=== PATIENT | female | born 1965 | race African-American/Black ===

== ENCOUNTER 2017-03-22 13:18 | Inpatient (IN) | payer OTHER ==
[2017-03-22 17:26] VITALS: BMI 24.9
--- NOTE | 2017-03-22 18:31 | HP ---
CIWA Score - CIWA Score Nausea/Vomitin Muscle Tremors: 4-Moderate,w/Arms Extend Anxiety: 4-Mod. Anxious/Guarded Agitation: 4-Moderately Restless Paroxysmal Sweats: 1-Minimal Palms Moist Orientation: 0-Oriented Tacttile Disturbances: 0-None Auditory Disturbances: 0-None Visual Disturbances: 0-None Headache: 1-Very Mild CIWA-Ar Total Score: 16 Admission ROS BHS - HPI Chief Complaint: WITHDRAWAL SX Allergies/Adverse Reactions: Allergies Allergy/AdvReac Type Severity Reaction Status Date / Time No Known Allergies Allergy Verified 03/22/17 17:43 History of Present Illness: 51 YEARS OLD FEMALE WITH LONG HISTORY OF ALCOHOL COCAINE NICOTINE DEPENDENCE HAS BORDERLINE DIABETES = NO TREATMENT, HYPERLIPIDEMIA = NONE COMPLIANCE WITH MEDICATION, HGB AIC PENDING AND DEPRESSION IS ADMITTED TO DETOX Exam Limitations: No Limitations - Ebola screening Have you traveled outside of the country in the last 21 days: No Have you had contact with anyone from an Ebola affected area: No Have you been sick,other than usual withdrawal symptoms: No Do you have a fever: No - Review of Systems Constitutional: Changes in sleep, Weight Stable EENT: reports: Dental Problems (MULTIPLE TEETH DECAY) Respiratory: reports: Productive cough (YELLOW) Cardiac: reports: No Symptoms Reported GI: reports: Nausea, Poor Fluid Intake, Vomiting, Indigestion, Abdominal cramping : reports: No Symptoms Reported Musculoskeletal: reports: Joint Pain (LEFT KNEE), Neck Pain Integumentary: reports: Rash (BETWEEN TOES) Neuro: reports: Tremors Endocrine: reports: No Symptoms Reported Hematology: reports: No Symptoms Reported Psychiatric: reports: Judgement Intact, Orientated x3, Depressed Other Systems: Reviewed and Negative Patient History - Patient Medical History Hx Anemia: No Hx Asthma: No Hx Chronic Obstructive Pulmonary Disease (COPD): No Hx Cancer: No Hx Cardiac Disorders: No Hx Congestive Heart Failure: No Hx Hypertension: No Hx Hypercholesterolemia: Yes (NO TREATMENT) Hx Pacemaker: No HX Cerebrovascular Accident: No Hx Seizures: No Hx Dementia: No Hx Diabetes: No Hx Gastrointestinal Disorders: Yes Hx Liver Disease: No Hx Genitourinary Disorders: No Hx Sexually Transmitted Disorders: Yes (Tx for syphillis.) Hx Renal Disease (ESRD): No Hx Thyroid Disease: No Hx Human Immunodeficiency Virus (HIV): No Hx Hepatitis C: No Hx Depression: Yes Hx Suicide Attempt: No Hx Bipolar Disorder: No Hx Schizophrenia: No - Patient Surgical History Past Surgical History: Yes Hx Neurologic Surgery: No Hx Cataract Extraction: No Hx Cardiac Surgery: No Hx Lung Surgery: No Hx Breast Surgery: No Hx Breast Biopsy: No Hx Abdominal Surgery: No Hx Appendectomy: Yes (5 YEARS OLD) Hx Cholecystectomy: Yes (2014) Hx Genitourinary Surgery: No Hx Section: No Hx Orthopedic Surgery: Yes (2014) Hx Hysterectomy: No Anesthesia Reaction: No - PPD History Previous Implant?: Yes Documented Results: Negative w/o proof Implanted On Prior [facility] Admission?: No PPD to be Administered?: Yes - Reproductive History Patient is a Female of Child Bearing Age (11 -55 yrs old): Yes Last Menstrual Period: 03/22/15 Patient : No - Smoking Cessation Smoking history: Current every day smoker Have you smoked in the past 12 months: Yes Aproximately how many cigarettes per day: 5 Cigars Per Day: 0 Hx Chewing Tobacco Use: No Initiated information on smoking cessation: Yes 'Breaking Loose' booklet given: 03/22/17 - Substance & Tx. History Hx Alcohol Use: Yes Hx Substance Use: Yes Substance Use Type: Alcohol, Cocaine Hx Substance Use Treatment: Yes (06/2016 [facility]) - Substances Abused Alcohol Route: Oral Frequency: Daily Amount used: 8-9 beers X 40OZ Age of first use: 10 Date of Last Use: 03/22/17 Cocaine Route: Smoking Frequency: Daily Amount used: $20 Age of first use: 30 Date of Last Use: 03/21/17 Family Disease History - Family Disease History Family Disease History: Diabetes: Mother (), Brother, Sister () , Heart Disease: Mother, Other: Father (/ALCOHOL), Mother, Sister Admission Physical Exam BHS - Vital Signs Vital Signs: Vital Signs - 24 hr 03/22/17 17:24 Temperature 98.0 F Pulse Rate 81 Respiratory 18 Rate Blood Pressure 144/86 - Physical General Appearance: Yes: Appropriately Dressed, Moderate Distress, Tremorous, Irritable, Sweating, Anxious HEENTM: Yes: Hearing grossly Normal, Normal ENT Inspection, Normocephalic, Normal Voice Respiratory: Yes: Chest Non-Tender, Lungs Clear, Normal Breath Sounds, No Respiratory Distress, No Accessory Muscle Use Neck: Yes: Supple, Trachea in good position Breast: Yes: Breasts Symetrical Cardiology: Yes: Regular Rhythm, Regular Rate, S1, S2 Abdominal: Yes: Non Tender, Soft, Surgical Scar Genitourinary: Yes: Itiching Back: Yes: Normal Inspection Musculoskeletal: Yes: full range of Motion, Gait Steady, Muscle Pain (NECK) Extremities: Yes: Normal Inspection, Normal Range of Motion, Non-Tender, Tremors , Other (ECZEMA) Neurological: Yes: Fully Oriented, Alert, Motor Strength 5/5, Normal Response, Depressed Affect Integumentary: Yes: Warm, Rash (TOES HANDS NECK ARMS ECZEMA) Lymphatic: Yes: Within Normal Limits - Diagnostic (1) Alcohol dependence with uncomplicated withdrawal Current Visit: Yes Status: Acute (2) GERD (gastroesophageal reflux disease) Current Visit: Yes Status: Chronic Qualifiers: Esophagitis presence: without esophagitis Qualified Code(s): K21.9 - Gastro-esophageal reflux disease without esophagitis; K21.9 - Gastro- esophageal reflux disease without esophagitis; K21.9 - Gastro-esophageal reflux disease without esophagitis (3) Nicotine dependence Current Visit: Yes Status: Acute Qualifiers: Nicotine product type: cigarettes Substance use status: in withdrawal Qualified Code(s): F17.213 - Nicotine dependence, cigarettes, with withdrawal; F17.213 - Nicotine dependence, cigarettes, with withdrawal (4) Eczema Current Visit: Yes Status: Acute Qualifiers: Eczema type: flexural Qualified Code(s): L20.82 - Flexural eczema; L20.82 - Flexural eczema (5) Depression (emotion) Current Visit: Yes Status: Suspected Qualifiers: Depression Type: dysthymia Qualified Code(s): F34.1 - Dysthymic disorder; F34.1 - Dysthymic disorder; F34.1 - Dysthymic disorder Cleared for Admission [facility] - Detox or Rehab [facility] Level of Care: Medically Managed Detox Regimen/Protocol: Librium [facility] Breath Alcohol Content Breath Alcohol Content: 0 Urine Pregancy Test - Result Urine Test Results: Negative- NO Line Present Urine Drug Screen - Results Drug Screen Negative: No Urine Drug Screen Results: RENAE-Cocaine
[2017-03-22] MEDS ORDERED: MENTHOL/PHENOL 1 EACH UD MM PRN (18:44)
[2017-03-22] MEDS ORDERED: LOPERAMIDE HCL 2 MG CAPSULE PO PRN (18:44)
[2017-03-22] MEDS ORDERED: P-EPHED 60MG/TRIPROLIDI 2.5MG TABLET PO PRN (18:44)
[2017-03-22] MEDS ORDERED: MAGNESIUM CITRATE 300 ML BOTTLE PO PRN (18:44)
[2017-03-22] MEDS ORDERED: MAGNESIUM HYDROX 2400MG/30ML ORAL SUSPENSION 30 ML CUP PO PRN (18:44)
[2017-03-22] MEDS ORDERED: MAG HYDROX/AL HYDROX/SIMETH 30 ML UNIT-DOSE CUP PO PRN (18:44)
[2017-03-22] MEDS ORDERED: ONDANSETRON *ODT* 4 MG TABLET SL ONE (18:45)
[2017-03-22] MEDS: chlordiazePOXIDE HCL 25 MG CAPSULE PO PRN (20:14)
[2017-03-22] MEDS: MINERAL OIL/PETROLAT/WATER TOPICAL CREAM 113 GM JAR TP SCH (22:27)
[2017-03-22] MEDS: chlordiazePOXIDE HCL 25 MG CAPSULE PO SCH (22:28)
[2017-03-22] MEDS: CLOTRIMAZOLE 1% CREAM 15 GM TUBE TP SCH (22:28)
[2017-03-22] MEDS: metroNIDAZOLE 0.75% VAGINAL GEL 70 GM TUBE VG SCH (22:28)
[2017-03-22] MEDS: GABAPENTIN 400 MG CAPSULE (FP) PO SCH (22:28)
[2017-03-22] MEDS: FLUOCINONIDE 0.05% CREAM (60 GM TUBE) TP SCH (22:28)
[2017-03-22] MEDS: RANITIDINE HCL 150 MG TABLET (FP) PO SCH (22:29)
[2017-03-22] MEDS: THIAMINE HCL 100 MG TABLET (FP) PO SCH (22:29)
[2017-03-22 23:31] LABS: URINE APPEARANCE CLEAR; URINE BILIRUBIN NEGATIVE (NEGATIVE); URINE BLOOD NEGATIVE (NEGATIVE); URINE COLOR STRAW; URINE GLUCOSE (UA) NEGATIVE (NEGATIVE); URINE KETONE NEGATIVE (NEGATIVE); URINE NITRITE NEGATIVE (NEGATIVE); URINE PROTEIN NEGATIVE (NEGATIVE); URINE UROBILINOGEN NEGATIVE mg/dL (0.2-1.0)
[2017-03-23] MEDS: guaiFENesin/D-METHORPHAN HB 10 ML UNIT-DOSE CUPS PO PRN ×2 (00:12→05:44)
[2017-03-23] MEDS: chlordiazePOXIDE HCL 25 MG CAPSULE PO SCH ×4 (05:45→22:24)
[2017-03-23] MEDS: CLOTRIMAZOLE 1% CREAM 15 GM TUBE TP SCH ×2 (10:28→22:26)
[2017-03-23] MEDS: PRENATAL VITAMINS W/ FOLIC ACID TABLET (FP) PO SCH (10:29)
[2017-03-23] MEDS: GABAPENTIN 400 MG CAPSULE (FP) PO SCH ×2 (10:29→22:24)
[2017-03-23] MEDS: RANITIDINE HCL 150 MG TABLET (FP) PO SCH ×2 (10:29→22:23)
[2017-03-23] MEDS: FLUOCINONIDE 0.05% CREAM (60 GM TUBE) TP SCH ×4 (10:29→22:25)
[2017-03-23] MEDS: NICOTINE 14 MG/24 HOURS TOPICAL PATCH TD SCH (10:29)
[2017-03-23] MEDS: NICOTINE POLACRILEX 2 MG GUM BUC PRN ×3 (10:35→22:30)
[2017-03-23 10:59] LABS: MCH 30.6 pg (25.7-33.7); MCHC 33.5 g/dl (32.0-36.0); MEAN CELL VOLUME 91.3 fl (80-96); PLATELET COUNT 388 K/MM3 (134-434); RDW 13.4 % (11.6-15.6); WHITE BLOOD COUNT 6.9 K/mm3 (4.0-10.0)
[2017-03-23 11:13] LABS: ALBUMIN 3.3 g/dl (3.4-5.0); ANION GAP 5 (8-16); CO2 30 mmol/L (21-32); GLUCOSE,RANDOM 106 mg/dL (74-106)
[2017-03-23 11:59] LABS: URINE LEUK ESTERASE Negative (NEGATIVE)
[2017-03-23] MEDS ORDERED: FLU VACCINE QUAD 60 MCG/0.5 ML (MDV 17-18) IM ONE (12:00)
--- NOTE | 2017-03-23 12:53 | EKG ---
Test Reason : Blood Pressure : / mmHG Vent. Rate : 073 BPM Atrial Rate : 073 BPM P-R Int : 150 ms QRS Dur : 082 ms QT Int : 366 ms P-R-T Axes : 064 058 -46 degrees QTc Int : 403 ms NORMAL SINUS RHYTHM T WAVE ABNORMALITY, CONSIDER INFEROLATERAL ISCHEMIA ABNORMAL ECG NO PREVIOUS ECGS AVAILABLE Confirmed by CARLEE CARLISLE MD ([id number]) on 03/23/2017 12:52:37 PM Referred By: Becca Hendricks Confirmed By:CARLEE CARLISLE MD
[2017-03-23 13:02] LABS: ALK PHOS 101 U/L (45-117); BILIRUBIN,TOTAL 0.4 mg/dL (0.2-1.0); CREATININE 1.1 mg/dL (0.55-1.02); SGOT/AST 14 U/L (15-37); SGPT/ALT 26 U/L (12-78)
[2017-03-23 13:17] LABS: CALCIUM 9.1 mg/dL (8.5-10.1)
--- NOTE | 2017-03-23 15:50 | PN ---
S CIWA - CIWA Score Nausea/Vomitin Muscle Tremors: 3 Anxiety: 3 Agitation: 3 Paroxysmal Sweats: 1-Minimal Palms Moist Orientation: 0-Oriented Tacttile Disturbances: 1-Very Mild Itch/Numbness Auditory Disturbances: 1-Very Mild Visual Disturbances: 1-Very Mild Sensitivity Headache: 2-Mild CIWA-Ar Total Score: 18 BHS Progress Note (SOAP) Subjective: alert,irritable,anxious,interrupted sleep,tremor Objective: 03/23/17 15:47 Vital Signs Temperature 99.9 F H 03/23/17 13:51 Pulse Rate 98 H 03/23/17 13:51 Respiratory Rate 18 03/23/17 13:51 Blood Pressure 96/63 03/23/17 13:51 O2 Sat by Pulse Oximetry (%) ekg nsr,inverted t in 2,3,avf,v4 to v6 Laboratory Last Values WBC 6.9 K/mm3 (4.0-10.0) 03/23/17 08:00 RBC 4.30 M/mm3 (3.60-5.2) 03/23/17 08:00 Hgb 13.2 GM/dL (10.7-15.3) 03/23/17 08:00 Hct 39.3 % (32.4-45.2) 03/23/17 08:00 MCV 91.3 fl (80-96) 03/23/17 08:00 MCH 30.6 pg (25.7-33.7) 03/23/17 08:00 MCHC 33.5 g/dl (32.0-36.0) 03/23/17 08:00 RDW 13.4 % (11.6-15.6) 03/23/17 08:00 Plt Count 388 K/MM3 (134-434) 03/23/17 08:00 MPV 8.0 fl (7.5-11.1) 03/23/17 08:00 Sodium 144 mmol/L (136-145) 03/23/17 08:30 Potassium 4.3 mmol/L (3.5-5.1) 03/23/17 08:30 Chloride 109 mmol/L (98-107) H 03/23/17 08:30 Carbon Dioxide 30 mmol/L (21-32) 03/23/17 08:30 Anion Gap 5 (8-16) L 03/23/17 08:30 BUN 21 mg/dL (7-18) H 03/23/17 08:30 Creatinine 1.1 mg/dL (0.55-1.02) H 03/23/17 08:30 Creat Clearance w eGFR 52.58 (>60) 03/23/17 08:30 Random Glucose 106 mg/dL (74-106) 03/23/17 08:30 Hemoglobin A1c % 6.0 % (4.8-6.0) 03/23/17 08:00 Calcium 9.1 mg/dL (8.5-10.1) 03/23/17 08:30 Total Bilirubin 0.4 mg/dL (0.2-1.0) 03/23/17 08:30 AST 14 U/L (15-37) L 03/23/17 08:30 ALT 26 U/L (12-78) 03/23/17 08:30 Alkaline Phosphatase 101 U/L (45-117) 03/23/17 08:30 Total Protein 7.0 g/dl (6.4-8.2) 03/23/17 08:30 Albumin 3.3 g/dl (3.4-5.0) L 03/23/17 08:30 Urine Color Straw 03/22/17 22:17 Urine Appearance Clear 03/22/17 22:17 Urine pH 5.0 (5.0-8.0) 03/22/17 22:17 Ur Specific [place] <= 1.005 (1.005-1.025) 03/22/17 22:17 Urine Protein Negative (NEGATIVE) 03/22/17 22:17 Urine Glucose (UA) Negative (NEGATIVE) 03/22/17 22:17 Urine Ketones Negative (NEGATIVE) 03/22/17 22:17 Urine Blood Negative (NEGATIVE) 03/22/17 22:17 Urine Nitrite Negative (NEGATIVE) 03/22/17 22: Urine Bilirubin Negative (NEGATIVE) 03/22/17 22:17 Urine Urobilinogen Negative mg/dL (0.2-1.0) 03/22/17 22:17 Ur Leukocyte Esterase Negative (NEGATIVE) 03/22/17 22:17 RPR Titer Nonreactive (NONREACTIVE) 03/23/17 08:00 03/23/17 15:50 Assessment: 03/23/17 15:49 03/23/17 15:50 withdrawal symptom Plan: continue detox
--- NOTE | 2017-03-23 17:10 | CONSULT ---
[facility] Psychiatric Consult - Data Date of interview: 03/23/17 Admission source: [facility] Identifying data: First admission to [facility] for this 51 y/o AA female seeking detox treatment on for alcohol and cocaine dependence.Patient is ,mother of four,homeless,unemployed and supported on foood stamps. Substance Abuse History: Confirmed by patient in this session. Smoking Cessation. Smoking history: Current every day smoker. Have you smoked in the past 12 months: Yes. Aproximately how many cigarettes per day: 5. Cigars Per Day: 0. Hx Chewing Tobacco Use: No. Initiated information on smoking cessation : Yes. 'Breaking Loose' booklet given: 03/22/17. - Substance & Tx. History. Hx Alcohol Use: Yes. Hx Substance Use: Yes. Substance Use Type: Alcohol, Cocaine. Hx Substance Use Treatment: Yes (06/2016 [facility]). - Substances Abused. * * Alcohol. Route: Oral. Frequency: Daily. Amount used: 8-9 beers X 40OZ. Age of first use: 10. Date of Last Use: 03/22/17. Cocaine. Route: Smoking. Frequency: Daily. Amount used: $20. Age of first use: 30. Date of Last Use : 03/21/17 Medical History: GERD,past treatment for syphilis,eczema and a remote history of appendectomy + cholecystectomy. Psychiatric History: Diagnosed with MDD (2007).Patient is known to [facility] in [facility] and [facility].Used to be prescribed seroquel + remeron + clonazepam.Reportedly stopped OPD care and medications " a little over a month ago." Ms Estrada denies history of suicide attempts. Physical/Sexual Abuse/Trauma History: Domain not discussed in this interview. Additional Comment: Urine Drug Screen Results: RENAE-Cocaine.Noted. Mental Status Exam - Mental Status Exam Alert and Oriented to: Time, Place, Person Cognitive Function: Grossly Intact Patient Appearance: Well Groomed Mood: Nervous, Withdrawn, Anxious, Hopeful Affect: Mood Congruent Patient Behavior: Appropriate, Cooperative Speech Pattern: Clear Voice Loudness: Normal Thought Process: Goal Oriented Thought Disorder: Not Present Hallucinations: Denies Suicidal Ideation: Denies Homicidal Ideation: Denies Insight/Judgement: Poor Sleep: Poorly, Difficulty falling asleep Appetite: Good Gait/Station: Normal Psychiatric Findings - Problem List ([place] 1, 2,3) (1) Alcohol dependence with uncomplicated withdrawal Current Visit: Yes Status: Acute (2) Cocaine dependence Current Visit: Yes Status: Acute (3) Nicotine dependence Current Visit: Yes Status: Acute Qualifiers: Nicotine product type: cigarettes Substance use status: in withdrawal Qualified Code(s): F17.213 - Nicotine dependence, cigarettes, with withdrawal; F17.213 - Nicotine dependence, cigarettes, with withdrawal (4) Substance induced mood disorder Current Visit: Yes Status: Acute (5) Eczema Current Visit: Yes Status: Chronic Qualifiers: Eczema type: flexural Qualified Code(s): L20.82 - Flexural eczema; L20.82 - Flexural eczema (6) GERD (gastroesophageal reflux disease) Current Visit: Yes Status: Chronic Qualifiers: Esophagitis presence: without esophagitis Qualified Code(s): K21.9 - Gastro-esophageal reflux disease without esophagitis; K21.9 - Gastro- esophageal reflux disease without esophagitis; K21.9 - Gastro-esophageal reflux disease without esophagitis (7) Insomnia Current Visit: Yes Status: Acute - Initial Treatment Plan Initial Treatment Plan: Psychoedcation.Detoxification.Seroquel 50 mg po hs ( patient's request).Side effects/benefits discussed with the patient.Consent given (verbally).Observation.
[2017-03-23] MEDS: THIAMINE HCL 100 MG TABLET (FP) PO SCH (22:23)
[2017-03-23] MEDS: MINERAL OIL/PETROLAT/WATER TOPICAL CREAM 113 GM JAR TP SCH (22:24)
[2017-03-23] MEDS: QUEtiapine FUMARATE 50 MG TABLET PO SCH (22:24)
[2017-03-23] MEDS: diphenhydrAMINE HCL 50 MG CAPSULE PO PRN (22:24)
[2017-03-23] MEDS: metroNIDAZOLE 0.75% VAGINAL GEL 70 GM TUBE VG SCH (22:26)
[2017-03-23] MEDS: ACETAMINOPHEN 325 MG TABLET (FP) PO PRN (22:27)
[2017-03-24] MEDS: guaiFENesin/D-METHORPHAN HB 10 ML UNIT-DOSE CUPS PO PRN ×2 (05:57→11:52)
[2017-03-24] MEDS: chlordiazePOXIDE HCL 25 MG CAPSULE PO SCH ×3 (06:00→18:03)
[2017-03-24] MEDS: PRENATAL VITAMINS W/ FOLIC ACID TABLET (FP) PO SCH (10:40)
[2017-03-24] MEDS: RANITIDINE HCL 150 MG TABLET (FP) PO SCH ×2 (10:40→22:37)
[2017-03-24] MEDS: GABAPENTIN 400 MG CAPSULE (FP) PO SCH ×2 (10:40→22:37)
[2017-03-24] MEDS: FLUOCINONIDE 0.05% CREAM (60 GM TUBE) TP SCH ×4 (10:41→22:38)
[2017-03-24] MEDS: CLOTRIMAZOLE 1% CREAM 15 GM TUBE TP SCH ×2 (10:41→22:38)
[2017-03-24] MEDS: ACETAMINOPHEN 325 MG TABLET (FP) PO PRN ×3 (10:42→20:32)
[2017-03-24] MEDS: NICOTINE 14 MG/24 HOURS TOPICAL PATCH TD SCH (10:42)
[2017-03-24] MEDS: NICOTINE POLACRILEX 2 MG GUM BUC PRN ×3 (10:45→22:39)
[2017-03-24] MEDS: ALBUTEROL SO4 2.5/IPRATROPIUM 0.5 INH SOL 3 ML VIAL.NEB. NEB PRN (11:25)
[2017-03-24] MEDS ORDERED: AZITHROMYCIN 250 MG TABLET PO ONE (11:26)
--- NOTE | 2017-03-24 11:38 | PN ---
S CIWA - CIWA Score Nausea/Vomitin Muscle Tremors: 3 Anxiety: 3 Agitation: 2 Paroxysmal Sweats: 1-Minimal Palms Moist Orientation: 0-Oriented Tacttile Disturbances: 1-Very Mild Itch/Numbness Auditory Disturbances: 1-Very Mild Visual Disturbances: 1-Very Mild Sensitivity Headache: 2-Mild CIWA-Ar Total Score: 17 BHS Progress Note (SOAP) Subjective: ALERT,IRRITABLE,ANXIOUS,TREMOR,COUGHING WITH YELLOWISH MUCOUS,HISTORY OF ASTHMA IN THE PAST Objective: 03/24/17 11:38 Vital Signs Temperature 98.1 F 03/24/17 11:13 Pulse Rate 107 H 03/24/17 11:13 Respiratory Rate 18 03/24/17 11:13 Blood Pressure 108/64 03/24/17 11:13 O2 Sat by Pulse Oximetry (%) 03/24/17 11:38 Laboratory Last Values WBC 6.9 K/mm3 (4.0-10.0) 03/23/17 08:00 RBC 4.30 M/mm3 (3.60-5.2) 03/23/17 08:00 Hgb 13.2 GM/dL (10.7-15.3) 03/23/17 08:00 Hct 39.3 % (32.4-45.2) 03/23/17 08:00 MCV 91.3 fl (80-96) 03/23/17 08:00 MCH 30.6 pg (25.7-33.7) 03/23/17 08:00 MCHC 33.5 g/dl (32.0-36.0) 03/23/17 08:00 RDW 13.4 % (11.6-15.6) 03/23/17 08:00 Plt Count 388 K/MM3 (134-434) 03/23/17 08:00 MPV 8.0 fl (7.5-11.1) 03/23/17 08:00 Sodium 144 mmol/L (136-145) 03/23/17 08:30 Potassium 4.3 mmol/L (3.5-5.1) 03/23/17 08:30 Chloride 109 mmol/L (98-107) H 03/23/17 08:30 Carbon Dioxide 30 mmol/L (21-32) 03/23/17 08:30 Anion Gap 5 (8-16) L 03/23/17 08:30 BUN 21 mg/dL (7-18) H 03/23/17 08:30 Creatinine 1.1 mg/dL (0.55-1.02) H 03/23/17 08:30 Creat Clearance w eGFR 52.58 (>60) 03/23/17 08:30 Random Glucose 106 mg/dL (74-106) 03/23/17 08:30 Hemoglobin A1c % 6.0 % (4.8-6.0) 03/23/17 08:00 Calcium 9.1 mg/dL (8.5-10.1) 03/23/17 08:30 Total Bilirubin 0.4 mg/dL (0.2-1.0) 03/23/17 08:30 AST 14 U/L (15-37) L 03/23/17 08:30 ALT 26 U/L (12-78) 03/23/17 08:30 Alkaline Phosphatase 101 U/L (45-117) 03/23/17 08:30 Total Protein 7.0 g/dl (6.4-8.2) 03/23/17 08:30 Albumin 3.3 g/dl (3.4-5.0) L 03/23/17 08:30 Urine Color Straw 03/22/17 22: Urine Appearance Clear 03/22/17 22: Urine pH 5.0 (5.0-8.0) 03/22/17 22:17 Ur Specific [place] <= 1.005 (1.005-1.025) 03/22/17 22:17 Urine Protein Negative (NEGATIVE) 03/22/17 22: Urine Glucose (UA) Negative (NEGATIVE) 03/22/17 22:17 Urine Ketones Negative (NEGATIVE) 03/22/17 22: Urine Blood Negative (NEGATIVE) 03/22/17 22: Urine Nitrite Negative (NEGATIVE) 03/22/17 22: Urine Bilirubin Negative (NEGATIVE) 03/22/17: Urine Urobilinogen Negative mg/dL (0.2-1.0) 03/22/17 22:17 Ur Leukocyte Esterase Negative (NEGATIVE) 03/22/17 22:17 RPR Titer Nonreactive (NONREACTIVE) 03/23/17 08:00 Hepatitis C Antibody <0.1 s/co ratio (0.0-0.9) 03/23/17 08:00 Assessment: 03/24/17 11:39 WITHDRAWAL SYMPTOM 03/24/17 11:39 LUNG EXPIRATORY WHEEZING Plan: CONTINUE DETOX,ALBUTEROL INHALER,DUONEB NEBULIZER TREATMENT,ZITHROMAX 500 MGS PO NOW THEN 250 MGS PO DAILY FOR 3 DAYS,CLOSE MONITORING
[2017-03-24] MEDS: BACLOFEN 10 MG TABLET (FP) PO PRN (11:49)
[2017-03-24] MEDS: CYCLOBENZAPRINE HCL 10 MG TABLET (FP) PO PRN ×2 (15:22→22:37)
[2017-03-24] MEDS: ALBUTEROL SO4 18 GM HFA INHALER IH PRN ×2 (15:31→22:39)
[2017-03-24] MEDS: diphenhydrAMINE HCL 50 MG CAPSULE PO PRN (22:37)
[2017-03-24] MEDS: chlordiazePOXIDE 5 MG CAPSULE PO SCH (22:37)
[2017-03-24] MEDS: QUEtiapine FUMARATE 50 MG TABLET PO SCH (22:37)
[2017-03-24] MEDS: THIAMINE HCL 100 MG TABLET (FP) PO SCH (22:37)
[2017-03-24] MEDS: MINERAL OIL/PETROLAT/WATER TOPICAL CREAM 113 GM JAR TP SCH (22:38)
[2017-03-24] MEDS: metroNIDAZOLE 0.75% VAGINAL GEL 70 GM TUBE VG SCH (22:39)
[2017-03-25] MEDS: chlordiazePOXIDE 5 MG CAPSULE PO SCH ×3 (06:03→17:22)
[2017-03-25] MEDS: CYCLOBENZAPRINE HCL 10 MG TABLET (FP) PO PRN ×2 (06:05→17:25)
[2017-03-25] MEDS: ALBUTEROL SO4 2.5/IPRATROPIUM 0.5 INH SOL 3 ML VIAL.NEB. NEB PRN (07:05)
[2017-03-25] MEDS: GABAPENTIN 400 MG CAPSULE (FP) PO SCH ×2 (10:40→22:25)
[2017-03-25] MEDS: AZITHROMYCIN 250 MG TABLET PO SCH (10:40)
[2017-03-25] MEDS: RANITIDINE HCL 150 MG TABLET (FP) PO SCH ×2 (10:40→22:25)
[2017-03-25] MEDS: PRENATAL VITAMINS W/ FOLIC ACID TABLET (FP) PO SCH (10:41)
[2017-03-25] MEDS: BACLOFEN 10 MG TABLET (FP) PO PRN ×2 (10:41→22:24)
[2017-03-25] MEDS: NICOTINE 14 MG/24 HOURS TOPICAL PATCH TD SCH (10:42)
[2017-03-25] MEDS: FLUOCINONIDE 0.05% CREAM (60 GM TUBE) TP SCH ×4 (10:42→22:24)
[2017-03-25] MEDS: CLOTRIMAZOLE 1% CREAM 15 GM TUBE TP SCH ×2 (10:43→22:24)
[2017-03-25] MEDS: NICOTINE POLACRILEX 2 MG GUM BUC PRN (10:47)
[2017-03-25] MEDS: ALBUTEROL SO4 18 GM HFA INHALER IH PRN (10:50)
[2017-03-25] MEDS: guaiFENesin/D-METHORPHAN HB 10 ML UNIT-DOSE CUPS PO PRN (10:51)
[2017-03-25] MEDS ORDERED: IBUPROFEN 400 MG TABLET (FP) PO PRN (11:04)
[2017-03-25] MEDS ORDERED: LIDOCAINE 5% TOPICAL PATCH TP ONE (11:05)
--- NOTE | 2017-03-25 11:12 | PN ---
BHS Progress Note (SOAP) Subjective: neck pain sweats interrupted sleep Objective: 03/25/17 11:13 Vital Signs Temperature 97.9 F 03/25/17 06:00 Pulse Rate 92 H 03/25/17 06:00 Respiratory Rate 18 03/25/17 06:00 Blood Pressure 122/88 03/25/17 06:00 O2 Sat by Pulse Oximetry (%) aaox3 ambulating no acute distress Assessment: 03/25/17 11:15 withdrawals tender to neck area when assessed Plan: motrin 800mg prn lidocaine patch x-ray ordered d/c in am
[2017-03-25] MEDS: chlordiazePOXIDE HCL 25 MG CAPSULE PO PRN (15:29)
[2017-03-25] MEDS ORDERED: LIDOCAINE PATCH REMOVAL MC SCH (22:00)
[2017-03-25] MEDS: chlordiazePOXIDE HCL 10 MG CAPSULE PO SCH (22:23)
[2017-03-25] MEDS: MINERAL OIL/PETROLAT/WATER TOPICAL CREAM 113 GM JAR TP SCH (22:23)
[2017-03-25] MEDS: diphenhydrAMINE HCL 50 MG CAPSULE PO PRN (22:23)
[2017-03-25] MEDS: metroNIDAZOLE 0.75% VAGINAL GEL 70 GM TUBE VG SCH (22:24)
[2017-03-25] MEDS: QUEtiapine FUMARATE 50 MG TABLET PO SCH (22:25)
[2017-03-25] MEDS: THIAMINE HCL 100 MG TABLET (FP) PO SCH (22:25)
[2017-03-26] MEDS: chlordiazePOXIDE HCL 10 MG CAPSULE PO SCH ×2 (06:20→10:30)
[2017-03-26] MEDS: ACETAMINOPHEN 325 MG TABLET (FP) PO PRN (06:20)
[2017-03-26] MEDS: NICOTINE POLACRILEX 2 MG GUM BUC PRN ×2 (06:22→09:58)
[2017-03-26] MEDS: ALBUTEROL SO4 2.5/IPRATROPIUM 0.5 INH SOL 3 ML VIAL.NEB. NEB PRN (06:40)
[2017-03-26] MEDS: guaiFENesin/D-METHORPHAN HB 10 ML UNIT-DOSE CUPS PO PRN (06:40)
--- NOTE | 2017-03-26 09:04 | PN ---
BHS Progress Note Note: reviewed x-ray results no acute pathology. pt made aware. motrin, lidocaine patch ordered and encouraged to use for any discomfort.
--- NOTE | 2017-03-26 09:05 | DS ---
[facility] Detox Discharge Summary Admission Date: 03/22/17 Discharge Date: 03/26/17 - History Present History: Alcohol Dependence, Cocaine Dependence - Physical Exam Results Vital Signs: Vital Signs Temperature 97.3 F L 03/26/17 06:53 Pulse Rate 95 H 03/26/17 06:53 Respiratory Rate 16 03/26/17 06:53 Blood Pressure 115/78 03/26/17 06:53 O2 Sat by Pulse Oximetry (%) - Treatment Hospital Course: Detox Protocol Followed, Detoxed Safely, Responded well, Discharged Condition Good, Rehab Referral Accepted - Medication Discharge Medications: Ambulatory Orders Diphenhydramine [Benadryl -] 50 mg PO HS 03/22/17 Fluocinonide 0.05% Cream [Lidex 0.05% Cream -] 1 applic TP BID 03/22/17 Gabapentin 800 mg PO BID 03/22/17 Metronidazole 0.75% Vag. Gel [Metrogel 0.75% *Vaginal Gel* -] 1 applic VG HS Mirtazapine [Remeron -] 15 mg PO HS 03/22/17 Quetiapine Fumarate [Seroquel -] 50 mg PO HS #30 tablet 03/23/17 - AMA Did Patient Leave Against Medical Advice: No
[2017-03-26] MEDS: RANITIDINE HCL 150 MG TABLET (FP) PO SCH (09:52)
[2017-03-26] MEDS: GABAPENTIN 400 MG CAPSULE (FP) PO SCH (09:52)
[2017-03-26] MEDS: PRENATAL VITAMINS W/ FOLIC ACID TABLET (FP) PO SCH (09:52)
[2017-03-26] MEDS: AZITHROMYCIN 250 MG TABLET PO SCH (09:52)
[2017-03-26] MEDS: FLUOCINONIDE 0.05% CREAM (60 GM TUBE) TP SCH (09:54)
[2017-03-26] MEDS: CLOTRIMAZOLE 1% CREAM 15 GM TUBE TP SCH (09:58)
[2017-03-26] MEDS: NICOTINE 14 MG/24 HOURS TOPICAL PATCH TD SCH (09:58)
[2017-03-26] MEDS ORDERED: LIDOCAINE 5% TOPICAL PATCH TP SCH (10:00)
[2017-03-26 12:43] VITALS: BP 120/92; PULSE 105; TEMP 98.1
== END 2017-03-26 12:42 | disposition other institution (70) | DRG 774 ==
LOC: YASAS 13:18 → Y6N 18:07
PROVIDERS: ADMIT Internal Medicine; ATTEND Surgery
PROC: HZ2ZZZZ Detoxification Services for Substance Abuse Treatment (ICD-10-PCS; principal; 2017-03-22)
DX: F10.230 Alcohol dependence with withdrawal, uncomplicated (principal); F14.20 Cocaine dependence, uncomplicated; F17.213 Nicotine dependence, cigarettes, with withdrawal; F19.24 Other psychoactive substance dependence with psychoactive substance-induced mood disorder; F34.1 Dysthymic disorder; G47.00 Insomnia, unspecified; K21.9 Gastro-esophageal reflux disease without esophagitis; E78.00 Pure hypercholesterolemia, unspecified; L20.82 Flexural eczema; Z87.42 Personal history of other diseases of the female genital tract
CPT/HCPCS: 36415; 70360-TC; 72100-TC; 80053; 81003; 83036; 85027; 86593; 86803; 90688; 93005; 93010; 94640; G0008; J0475

== ENCOUNTER 2017-03-26 12:48 | Inpatient (IN) | payer OTHER ==
[2017-03-26] MEDS ORDERED: LOPERAMIDE HCL 2 MG CAPSULE PO PRN (14:16)
[2017-03-26] MEDS ORDERED: MAGNESIUM CITRATE 300 ML BOTTLE PO PRN (14:16)
[2017-03-26] MEDS ORDERED: ACETAMINOPHEN 325 MG TABLET (FP) PO PRN (14:16)
[2017-03-26] MEDS ORDERED: MAGNESIUM HYDROX 2400MG/30ML ORAL SUSPENSION 30 ML CUP PO PRN (14:16)
[2017-03-26] MEDS ORDERED: IBUPROFEN 400 MG TABLET (FP) PO PRN (14:16)
[2017-03-26] MEDS ORDERED: P-EPHED 60MG/TRIPROLIDI 2.5MG TABLET PO PRN (14:16)
[2017-03-26] MEDS ORDERED: diphenhydrAMINE HCL 50 MG CAPSULE PO PRN (14:16)
--- NOTE | 2017-03-26 14:16 | HP ---
GRABIEL MARTINEZ Rehab Assess/Revision - Admission History Admitted to Rehab from: [facility] [address] [place] Date of Admission to Rehab: 03/26/2017 - Vital signs Vital Signs: Vital Signs Period Temp Pulse Resp BP Sys/Darby Pulse Ox Last 24 Hr 98.4 F 103 17 125/85 - Findings Detox History & Physical reviewed: Yes Concur with findings: Yes Inpatient Rehab Admission - Initial Determination Are CD services needed?: Yes Free of communicable disease: Yes Not in need of hospitalization: Yes - Rehab Admission Criteria Comorbidities: Yes Patient is meeting Inpatient Rehab admission criteria:: Yes
[2017-03-26] MEDS ORDERED: ALBUTEROL SO4 2.5/IPRATROPIUM 0.5 INH SOL 3 ML VIAL.NEB. NEB PRN (14:18)
[2017-03-26] MEDS: hydrOXYzine PAMOATE 50 MG CAPSULE (FP) PO PRN ×2 (18:18→21:51)
[2017-03-26] MEDS: IBUPROFEN 400 MG TABLET (FP) PO PRN (18:18)
[2017-03-26] MEDS: MINERAL OIL/PETROLAT/WATER TOPICAL CREAM 113 GM JAR TP SCH (21:49)
[2017-03-26] MEDS: MIRTAZAPINE 15 MG TABLET (FP) PO SCH (21:49)
[2017-03-26] MEDS: metroNIDAZOLE 0.75% VAGINAL GEL 70 GM TUBE VG SCH (21:49)
[2017-03-26] MEDS: FLUOCINONIDE 0.05% CREAM (15 GM TUBE) TP SCH (21:49)
[2017-03-26] MEDS: GABAPENTIN 400 MG CAPSULE (FP) PO SCH (21:49)
[2017-03-26] MEDS: THIAMINE HCL 100 MG TABLET (FP) PO SCH (21:49)
[2017-03-26] MEDS: RANITIDINE HCL 150 MG TABLET (FP) PO SCH (21:49)
[2017-03-26] MEDS ORDERED: QUEtiapine FUMARATE 50 MG TABLET PO SCH (22:00)
--- NOTE | 2017-03-27 07:28 | PN ---
S Progress Note Note: ASKED TO SEE PT FOR REPORTED FALL OOB. PT STATES SHE ROLLED OOB LANDING ON HE LEFT SIDE. C/O SORE L HIP. DENIES HEAD TRAUMA, LOC, DIZZINESS OR DIFFICULTY AMBULATING. ASKING FOR BENGAY FOR CHRONIC JOINT PAIN. Last Vital Signs Temp Pulse Resp BP Pulse Ox 97.6 F 97 H 18 130/94 03/27/17 07:23 03/27/17 07:23 03/27/17 07:23 03/27/17 07:23 SEEN OOB IN DAY ROOM. AMBULATING W/O DIFFICULTY A/O X 3 NAD SKIN INTACT NO INJURIES OR BRUISING EXTREMITES FROM X4 W/O LIMITATIONS S/P FALL P- FALL PROTOCOL #2 TYLENOL/ MOTRIN ORDERED BENGAY TO AFFECTED AREAS BID PRN
[2017-03-27] MEDS: LIDOCAINE 5% TOPICAL PATCH TP SCH (10:35)
[2017-03-27] MEDS: GABAPENTIN 400 MG CAPSULE (FP) PO SCH ×2 (10:35→21:48)
[2017-03-27] MEDS: PRENATAL VITAMINS W/ FOLIC ACID TABLET (FP) PO SCH (10:35)
[2017-03-27] MEDS: RANITIDINE HCL 150 MG TABLET (FP) PO SCH ×2 (10:35→21:48)
[2017-03-27] MEDS: FLUOCINONIDE 0.05% CREAM (15 GM TUBE) TP SCH ×2 (10:36→21:50)
[2017-03-27] MEDS: NICOTINE 14 MG/24 HOURS TOPICAL PATCH TD SCH (10:37)
--- NOTE | 2017-03-27 11:11 | HP ---
Psychiatrist Admission - Data Date of interview: 03/27/17 Admission source: [facility] Identifying data: This is the first admission to [address] [place] [address] for this 51 years old AA female mother of 4 grown children,homeless,no financial support. Medical History: HTN,BA,DM,Hypelipidemia. Psychiatric History: First contact with psychiatrist was in 2007 when she lost her baby(5 months ).Patient was depressed,anxious.She was dx with PTSD and placed on Remeron 15 mg po hs,Seroquel 100 mg po hs and Zoloft 100 mg po daily,Klonopin as needed.No psychiatric hospitalizations,no suicidal ideas.patient used to see a psychiatrist at [facility] in [facility].Patient stopped to see a psychiatrist a few years ago.Then she was under care in [facility] in [facility] a few months ago.Patient is willing to restart medications: Seroquel 100 mg po hs,Remeron 15 mg po hs and Neurontin 800 mg po bid. Physical/Sexual Abuse/Trauma History: denies Vital Signs: Vital Signs - 24 hr 03/26/17 03/26/17 03/27/17 14:08 15:05 00:30 Temperature 98.4 F 98.4 F Pulse Rate 103 H 103 H Respiratory 17 17 18 Rate Blood Pressure 125/85 125/85 03/27/17 03/27/17 03/27/17 03:30 06:40 07:23 Temperature 97.6 F 97.6 F Pulse Rate 97 H 97 H Respiratory 18 18 18 Rate Blood Pressure 130/94 130/94 Allergies/Adverse Reactions: Allergies Allergy/AdvReac Type Severity Reaction Status Date / Time No Known Allergies Allergy Verified 03/22/17 17:43 Date of last physical exam: 03/22/17 Concur with the findings of this exam: Yes - Substance Abuse/Tx History Hx Alcohol Use: Yes (reports drinking since 8 yo,hevy drinker about 11 yo,vodka 2-3 pints daily,) Hx Substance Use: Yes (crack/cocaine sicne 30 yo,$20 daily) Substance Use Type: Alcohol, Cocaine Hx Substance Use Treatment: Yes (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 ) Mental Status Exam - Mental Status Exam Alert and Oriented to: Time, Place, Person Cognitive Function: Grossly Intact Patient Appearance: Unkempt Mood: Sad, Anxious, Irritable Affect: Mood Congruent, Labile Patient Behavior: Cooperative Speech Pattern: Clear Voice Loudness: Normal Thought Process: Goal Oriented Thought Disorder: Not Present Hallucinations: Denies Suicidal Ideation: Denies Homicidal Ideation: Denies Insight/Judgement: Fair Sleep: Difficulty falling asleep Appetite: Fair Muscle strength/Tone: Normal Gait/Station: Normal Additional Comments: Still flashbacks about her 2 children who sometime ago ,preoccupied with memories. Psychiatric Findings - Problem List ([place] 1, 2,3) (1) Cocaine dependence Current Visit: Yes Status: Chronic (2) Nicotine dependence Current Visit: Yes Status: Chronic Qualifiers: (3) Substance induced mood disorder Current Visit: Yes Status: Chronic (4) Eczema Current Visit: Yes Status: Chronic Qualifiers: (5) GERD (gastroesophageal reflux disease) Current Visit: Yes Status: Chronic Qualifiers: (6) Alcohol dependence Current Visit: Yes Status: Chronic - Initial Treatment Plan Initial Treatment Plan: Seroquel 100 mg po hs,Neurontin 800 mg po bid,Remeron 15 mg po hs.
[2017-03-27] MEDS ORDERED: PNEUMOC 13-VAL CONJ-DIP CRM/PF 0.5 ML DISP.SYRIN IM ONE (12:00)
[2017-03-27] MEDS ORDERED: PNEUMOCOCCAL 23 VACCINE 0.5 ML VIAL IM ONE (12:00)
[2017-03-27] MEDS: NICOTINE POLACRILEX 2 MG GUM BUC PRN ×2 (12:07→15:19)
[2017-03-27] MEDS: MAG HYDROX/AL HYDROX/SIMETH 30 ML UNIT-DOSE CUP PO PRN ×2 (12:08→22:31)
[2017-03-27] MEDS: guaiFENesin/D-METHORPHAN HB 10 ML UNIT-DOSE CUPS PO PRN ×2 (12:23→21:59)
[2017-03-27] MEDS ORDERED: PT OWN MED DRAWER 7, Y5N ONE ×3 (12:42→15:20)
[2017-03-27 14:20] LABS: HIV 1 & 2 AB NEGATIVE; HIV 1 AGp24 NEGATIVE
[2017-03-27] MEDS ORDERED: AZITHROMYCIN 250 MG TABLET PO ONE (14:22)
[2017-03-27] MEDS: hydrOXYzine PAMOATE 50 MG CAPSULE (FP) PO PRN ×2 (15:17→21:55)
[2017-03-27] MEDS: BACLOFEN 10 MG TABLET (FP) PO PRN (15:20)
[2017-03-27] MEDS: THIAMINE HCL 100 MG TABLET (FP) PO SCH (21:48)
[2017-03-27] MEDS: MIRTAZAPINE 15 MG TABLET (FP) PO SCH (21:48)
[2017-03-27] MEDS: metroNIDAZOLE 0.75% VAGINAL GEL 70 GM TUBE VG SCH (21:49)
[2017-03-27] MEDS: MINERAL OIL/PETROLAT/WATER TOPICAL CREAM 113 GM JAR TP SCH (21:51)
[2017-03-27] MEDS: QUEtiapine FUMARATE 100 MG TABLET (FP) PO SCH (21:52)
[2017-03-27] MEDS: IBUPROFEN 400 MG TABLET (FP) PO PRN (21:57)
[2017-03-28] MEDS: MAG HYDROX/AL HYDROX/SIMETH 30 ML UNIT-DOSE CUP PO PRN (06:53)
[2017-03-28] MEDS: guaiFENesin/D-METHORPHAN HB 10 ML UNIT-DOSE CUPS PO PRN ×2 (06:53→21:40)
[2017-03-28] MEDS: hydrOXYzine PAMOATE 50 MG CAPSULE (FP) PO PRN ×3 (06:53→21:40)
[2017-03-28] MEDS ORDERED: PT OWN MED DRAWER 7, Y5N ONE ×4 (08:58→21:41)
[2017-03-28] MEDS: LIDOCAINE 5% TOPICAL PATCH TP SCH (10:26)
[2017-03-28] MEDS: FLUOCINONIDE 0.05% CREAM (15 GM TUBE) TP SCH ×2 (10:26→21:37)
[2017-03-28] MEDS: NICOTINE 14 MG/24 HOURS TOPICAL PATCH TD SCH (10:26)
[2017-03-28] MEDS: PRENATAL VITAMINS W/ FOLIC ACID TABLET (FP) PO SCH (10:27)
[2017-03-28] MEDS: GABAPENTIN 400 MG CAPSULE (FP) PO SCH ×2 (10:27→21:37)
[2017-03-28] MEDS: RANITIDINE HCL 150 MG TABLET (FP) PO SCH ×2 (10:27→21:37)
[2017-03-28] MEDS: BACLOFEN 10 MG TABLET (FP) PO PRN ×2 (10:32→21:40)
[2017-03-28] MEDS: FLUTICASONE PROP 0.05% 16 GM NASAL SPRAY NS SCH (15:00)
[2017-03-28] MEDS: metroNIDAZOLE 0.75% VAGINAL GEL 70 GM TUBE VG SCH (21:36)
[2017-03-28] MEDS: MIRTAZAPINE 15 MG TABLET (FP) PO SCH (21:37)
[2017-03-28] MEDS: QUEtiapine FUMARATE 100 MG TABLET (FP) PO SCH (21:37)
[2017-03-28] MEDS: THIAMINE HCL 100 MG TABLET (FP) PO SCH (21:38)
[2017-03-28] MEDS: TOLNAFTATE 1% CREAM 15 GM TUBE TP SCH (21:42)
[2017-03-28] MEDS: ALBUTEROL SO4 18 GM HFA INHALER IH PRN (21:43)
[2017-03-28] MEDS: MINERAL OIL/PETROLAT/WATER TOPICAL CREAM 113 GM JAR TP SCH (21:43)
[2017-03-28] MEDS ORDERED: MAGNESIUM CITRATE 300 ML BOTTLE PO ONE (22:08)
[2017-03-29] MEDS: hydrOXYzine PAMOATE 50 MG CAPSULE (FP) PO PRN ×3 (04:30→18:25)
[2017-03-29] MEDS: BACLOFEN 10 MG TABLET (FP) PO PRN ×2 (06:32→21:49)
[2017-03-29] MEDS: GABAPENTIN 400 MG CAPSULE (FP) PO SCH ×2 (10:50→21:47)
[2017-03-29] MEDS: NICOTINE 14 MG/24 HOURS TOPICAL PATCH TD SCH (10:50)
[2017-03-29] MEDS: RANITIDINE HCL 150 MG TABLET (FP) PO SCH ×2 (10:50→21:47)
[2017-03-29] MEDS: PRENATAL VITAMINS W/ FOLIC ACID TABLET (FP) PO SCH (10:50)
[2017-03-29] MEDS: LIDOCAINE 5% TOPICAL PATCH TP SCH (10:50)
[2017-03-29] MEDS: FLUTICASONE PROP 0.05% 16 GM NASAL SPRAY NS SCH (10:51)
[2017-03-29] MEDS: guaiFENesin/D-METHORPHAN HB 10 ML UNIT-DOSE CUPS PO PRN (10:52)
[2017-03-29] MEDS: TOLNAFTATE 1% CREAM 15 GM TUBE TP SCH ×2 (10:53→21:48)
[2017-03-29] MEDS: FLUOCINONIDE 0.05% CREAM (15 GM TUBE) TP SCH ×2 (10:53→21:48)
[2017-03-29] MEDS: ALBUTEROL SO4 18 GM HFA INHALER IH PRN ×2 (10:56→21:51)
[2017-03-29] MEDS ORDERED: PT OWN MED DRAWER 7, Y5N ONE ×2 (10:56→21:51)
[2017-03-29] MEDS: NICOTINE POLACRILEX 2 MG GUM BUC PRN (10:57)
[2017-03-29] MEDS: THIAMINE HCL 100 MG TABLET (FP) PO SCH (21:46)
[2017-03-29] MEDS: QUEtiapine FUMARATE 100 MG TABLET (FP) PO SCH (21:47)
[2017-03-29] MEDS: MIRTAZAPINE 15 MG TABLET (FP) PO SCH (21:47)
[2017-03-29] MEDS: MINERAL OIL/PETROLAT/WATER TOPICAL CREAM 113 GM JAR TP SCH (21:47)
[2017-03-29] MEDS: metroNIDAZOLE 0.75% VAGINAL GEL 70 GM TUBE VG SCH (21:49)
[2017-03-29] MEDS: MAG HYDROX/AL HYDROX/SIMETH 30 ML UNIT-DOSE CUP PO PRN (22:11)
[2017-03-30] MEDS: hydrOXYzine PAMOATE 50 MG CAPSULE (FP) PO PRN ×4 (01:02→21:39)
[2017-03-30] MEDS: BACLOFEN 10 MG TABLET (FP) PO PRN ×2 (07:02→15:44)
[2017-03-30] MEDS: METHYL SALICYLATE/MENTHOL OINT 30 GM TUBE TP PRN (10:06)
[2017-03-30] MEDS: FLUTICASONE PROP 0.05% 16 GM NASAL SPRAY NS SCH (10:06)
[2017-03-30] MEDS: LIDOCAINE 5% TOPICAL PATCH TP SCH (10:07)
[2017-03-30] MEDS: FLUOCINONIDE 0.05% CREAM (15 GM TUBE) TP SCH ×2 (10:07→22:01)
[2017-03-30] MEDS: GABAPENTIN 400 MG CAPSULE (FP) PO SCH ×2 (10:08→21:38)
[2017-03-30] MEDS: RANITIDINE HCL 150 MG TABLET (FP) PO SCH ×2 (10:08→21:38)
[2017-03-30] MEDS: NICOTINE 14 MG/24 HOURS TOPICAL PATCH TD SCH (10:08)
[2017-03-30] MEDS: PRENATAL VITAMINS W/ FOLIC ACID TABLET (FP) PO SCH (10:08)
[2017-03-30] MEDS: TOLNAFTATE 1% CREAM 15 GM TUBE TP SCH ×2 (10:09→22:01)
[2017-03-30] MEDS: NICOTINE POLACRILEX 2 MG GUM BUC PRN ×2 (10:12→21:42)
[2017-03-30] MEDS: guaiFENesin/D-METHORPHAN HB 10 ML UNIT-DOSE CUPS PO PRN (10:12)
[2017-03-30] MEDS: THIAMINE HCL 100 MG TABLET (FP) PO SCH (21:38)
[2017-03-30] MEDS: MIRTAZAPINE 15 MG TABLET (FP) PO SCH (21:38)
[2017-03-30] MEDS: QUEtiapine FUMARATE 100 MG TABLET (FP) PO SCH (21:38)
[2017-03-30] MEDS: MINERAL OIL/PETROLAT/WATER TOPICAL CREAM 113 GM JAR TP SCH (21:39)
[2017-03-30] MEDS: MENTHOL/PHENOL 1 EACH UD MM PRN (21:42)
[2017-03-31] MEDS: hydrOXYzine PAMOATE 50 MG CAPSULE (FP) PO PRN ×3 (03:07→21:40)
[2017-03-31] MEDS: guaiFENesin/D-METHORPHAN HB 10 ML UNIT-DOSE CUPS PO PRN ×2 (03:11→10:19)
[2017-03-31] MEDS: BACLOFEN 10 MG TABLET (FP) PO PRN (06:39)
[2017-03-31] MEDS: FLUTICASONE PROP 0.05% 16 GM NASAL SPRAY NS SCH (10:15)
[2017-03-31] MEDS: GABAPENTIN 400 MG CAPSULE (FP) PO SCH ×2 (10:16→21:39)
[2017-03-31] MEDS: FLUOCINONIDE 0.05% CREAM (15 GM TUBE) TP SCH ×2 (10:16→21:38)
[2017-03-31] MEDS: METHYL SALICYLATE/MENTHOL OINT 30 GM TUBE TP PRN (10:16)
[2017-03-31] MEDS: LIDOCAINE 5% TOPICAL PATCH TP SCH (10:16)
[2017-03-31] MEDS: PRENATAL VITAMINS W/ FOLIC ACID TABLET (FP) PO SCH (10:17)
[2017-03-31] MEDS: RANITIDINE HCL 150 MG TABLET (FP) PO SCH ×2 (10:17→21:39)
[2017-03-31] MEDS: NICOTINE 14 MG/24 HOURS TOPICAL PATCH TD SCH (10:17)
[2017-03-31] MEDS: TOLNAFTATE 1% CREAM 15 GM TUBE TP SCH ×2 (10:17→21:40)
[2017-03-31] MEDS: NICOTINE POLACRILEX 2 MG GUM BUC PRN (10:20)
[2017-03-31] MEDS: MAG HYDROX/AL HYDROX/SIMETH 30 ML UNIT-DOSE CUP PO PRN (14:25)
[2017-03-31] MEDS: MENTHOL/PHENOL 1 EACH UD MM PRN (14:26)
[2017-03-31] MEDS ORDERED: PT OWN MED DRAWER 7, Y5N ONE (18:43)
[2017-03-31] MEDS: MINERAL OIL/PETROLAT/WATER TOPICAL CREAM 113 GM JAR TP SCH (21:38)
[2017-03-31] MEDS: THIAMINE HCL 100 MG TABLET (FP) PO SCH (21:39)
[2017-03-31] MEDS: MIRTAZAPINE 15 MG TABLET (FP) PO SCH (21:39)
[2017-03-31] MEDS: QUEtiapine FUMARATE 100 MG TABLET (FP) PO SCH (21:39)
[2017-04-01] MEDS: hydrOXYzine PAMOATE 50 MG CAPSULE (FP) PO PRN ×4 (02:22→21:58)
[2017-04-01] MEDS: BACLOFEN 10 MG TABLET (FP) PO PRN (02:22)
[2017-04-01] MEDS: guaiFENesin/D-METHORPHAN HB 10 ML UNIT-DOSE CUPS PO PRN ×2 (06:38→22:01)
[2017-04-01] MEDS: NICOTINE POLACRILEX 2 MG GUM BUC PRN ×2 (09:03→14:38)
[2017-04-01] MEDS: PRENATAL VITAMINS W/ FOLIC ACID TABLET (FP) PO SCH (10:45)
[2017-04-01] MEDS: LIDOCAINE 5% TOPICAL PATCH TP SCH (10:45)
[2017-04-01] MEDS: GABAPENTIN 400 MG CAPSULE (FP) PO SCH ×3 (10:45→21:58)
[2017-04-01] MEDS: RANITIDINE HCL 150 MG TABLET (FP) PO SCH ×2 (10:45→21:58)
[2017-04-01] MEDS: FLUOCINONIDE 0.05% CREAM (15 GM TUBE) TP SCH ×2 (10:46→21:59)
[2017-04-01] MEDS: TOLNAFTATE 1% CREAM 15 GM TUBE TP SCH ×2 (10:46→22:02)
[2017-04-01] MEDS: NICOTINE 14 MG/24 HOURS TOPICAL PATCH TD SCH (10:46)
[2017-04-01] MEDS: FLUTICASONE PROP 0.05% 16 GM NASAL SPRAY NS SCH (10:46)
--- NOTE | 2017-04-01 12:45 | PN ---
Psychiatric Progress Note Vital Signs: Vital Signs Period Temp Pulse Resp BP Sys/Darby Pulse Ox Last 24 Hr 98.0 F 98 18-18 105/73 Date of Session: 04/01/17 Chief Complaint:: " I cannot sleep." Current Medications: Active Medications Generic Name Dose Route Start Last Admin Trade Name Freq PRN Reason Stop Dose Admin Acetaminophen 650 mg 03/26/17 14:16 03/26/17 21:52 Tylenol - PO 650 mg Q4H PRN Administration FEVER OR PAIN Al Hydroxide/Mg Hydroxide 30 ml 03/26/17 14:16 03/31/17 14:25 Mylanta Oral Suspension - PO 30 ml Q6H PRN Administration DYSPEPSIA Albuterol Sulfate 2 puff 03/26/17 14:18 03/29/17 21:51 Ventolin Hfa Inhaler - IH 2 inhaler Q4H PRN Administration WHEEZING Albuterol/Ipratropium 1 amp 03/26/17 14:18 03/26/17 16:05 Duoneb - NEB 1 amp Q4H PRN Administration WHEEZING Cyclobenzaprine HCl 10 mg 04/01/17 14:00 Flexeril - PO TID LALIT Docusate Sodium 300 mg 04/01/17 22:00 Colace - PO HS LALIT Eucalyptus/Menthol/Phenol/Sorbitol 1 each 03/26/17 14:16 03/31/17 14:26 Cepastat Lozenge - MM 1 each Q4H PRN Administration SORE THROAT Fluocinonide 1 applic 03/26/17 22:00 04/01/17 10:46 Lidex 0.05% Cream - TP Not Given BID LALIT Fluticasone Propionate 2 spray 03/28/17 14:00 04/01/17 10:46 Flonase - NS 2 spray DAILY LALIT Administration Gabapentin 800 mg 04/01/17 14:00 Neurontin - PO TID LALIT Guaifenesin 10 ml 03/26/17 14:16 04/01/17 06:38 Robitussin Dm - PO 10 ml Q6H PRN Administration COUGH Hydroxyzine Pamoate 50 mg 03/26/17 14:16 04/01/17 10:48 Vistaril - PO 50 mg Q4H PRN Administration AGITATION Ibuprofen 800 mg 03/26/17 14:18 03/27/17 21:57 Motrin - PO 800 mg Q8H PRN Administration PAIN Lidocaine 1 patch 03/27/17 10:00 04/01/17 10:45 Lidoderm Patch - TP 1 patch DAILY LALIT Administration Loperamide HCl 4 mg 03/26/17 14:16 Imodium - PO Q6H PRN DIARRHEA Magnesium Hydroxide 30 ml 03/26/17 14:16 03/28/17 13:54 Milk Of Magnesia - PO 30 ml DAILY PRN Administration CONSTIPATION Methyl Salicylate 1 applic 03/27/17 07:28 03/31/17 10:16 Allan-Tellez - TP 1 applic BID PRN Administration PAIN Mirtazapine 15 mg 03/26/17 22:00 03/31/17 21:39 Remeron - PO 15 mg HS LALIT Administration Multi-Ingredient Lotion 1 applic 03/26/17 22:00 03/31/17 21:38 Eucerin (Small Jar) - TP Not Given HS LALIT Nicotine 14 mg 03/27/17 10:00 04/01/17 10:46 Nicoderm Patch - TD Not Given DAILY LALIT Nicotine Polacrilex 2 mg 03/26/17 14:16 04/01/17 09:03 Nicorette Gum - BUC 2 mg Q2H PRN Administration NICOTINE REPLACEMENT RX Multivit/Folic Acid/Iron 1 tab 03/27/17 10:00 04/01/17 10:45 Vitamins (Sjr) - PO 1 tab DAILY LALIT Administration Pseudoephedrine/Triprolidine 1 combo 03/26/17 14:16 Actifed - PO TID PRN NASAL CONGESTION Quetiapine Fumarate 100 mg 03/27/17 22:00 03/31/17 21:39 Seroquel - PO 100 mg HS LALIT Administration Ranitidine HCl 150 mg 03/26/17 22:00 04/01/17 10:45 Zantac - PO 150 mg BID LALIT Administration Thiamine HCl 100 mg 03/26/17 22:00 03/31/17 21:39 Vitamin B1 - PO 100 mg HS LALIT Administration Tolnaftate 1 applic 03/28/17 22:00 04/01/17 10:46 Tinactin 1% Cream - TP Not Given BID LALIT
--- NOTE | 2017-04-01 13:52 | PN ---
Psychiatric Progress Note Vital Signs: Vital Signs Period Temp Pulse Resp BP Sys/Darby Pulse Ox Last 24 Hr 98.0 F 98 18-18 105/73 Date of Session: 04/01/17 Chief Complaint:: " I still feel anxious.Not able to sleep at night." HPI: Uneventful hospital course for this 51 y/o AA female addressing alcohol, cocaine dependence co-morbid with substance-induced mood disorder.Psychiatric follow up is sought to address complaint of insomnia. ROS: Patient is ambulatory,alert and fully oriented.Medically stable. Current Medications: Active Medications Generic Name Dose Route Start Last Admin Trade Name Freq PRN Reason Stop Dose Admin Acetaminophen 650 mg 03/26/17 14:16 03/26/17 21:52 Tylenol - PO 650 mg Q4H PRN Administration FEVER OR PAIN Al Hydroxide/Mg Hydroxide 30 ml 03/26/17 14:16 03/31/17 14:25 Mylanta Oral Suspension - PO 30 ml Q6H PRN Administration DYSPEPSIA Albuterol Sulfate 2 puff 03/26/17 14:18 03/29/17 21:51 Ventolin Hfa Inhaler - IH 2 inhaler Q4H PRN Administration WHEEZING Albuterol/Ipratropium 1 amp 03/26/17 14:18 03/26/17 16:05 Duoneb - NEB 1 amp Q4H PRN Administration WHEEZING Cyclobenzaprine HCl 10 mg 04/01/17 14:00 Flexeril - PO TID LALIT Docusate Sodium 300 mg 04/01/17 22:00 Colace - PO HS LALIT Eucalyptus/Menthol/Phenol/Sorbitol 1 each 03/26/17 14:16 03/31/17 14:26 Cepastat Lozenge - MM 1 each Q4H PRN Administration SORE THROAT Fluocinonide 1 applic 03/26/17 22:00 04/01/17 10:46 Lidex 0.05% Cream - TP Not Given BID LALIT Fluticasone Propionate 2 spray 03/28/17 14:00 04/01/17 10:46 Flonase - NS 2 spray DAILY LALTI Administration Gabapentin 800 mg 04/01/17 14:00 Neurontin - PO TID LALIT Guaifenesin 10 ml 03/26/17 14:16 04/01/17 06:38 Robitussin Dm - PO 10 ml Q6H PRN Administration COUGH Hydroxyzine Pamoate 50 mg 03/26/17 14:16 04/01/17 10:48 Vistaril - PO 50 mg Q4H PRN Administration AGITATION Ibuprofen 800 mg 03/26/17 14:18 03/27/17 21:57 Motrin - PO 800 mg Q8H PRN Administration PAIN Lidocaine 1 patch 03/27/17 10:00 04/01/17 10:45 Lidoderm Patch - TP 1 patch DAILY LALIT Administration Loperamide HCl 4 mg 03/26/17 14:16 Imodium - PO Q6H PRN DIARRHEA Magnesium Hydroxide 30 ml 03/26/17 14:16 03/28/17 13:54 Milk Of Magnesia - PO 30 ml DAILY PRN Administration CONSTIPATION Methyl Salicylate 1 applic 03/27/17 07:28 03/31/17 10:16 Allan-Tellez - TP 1 applic BID PRN Administration PAIN Mirtazapine 15 mg 03/26/17 22:00 03/31/17 21:39 Remeron - PO 15 mg HS LALIT Administration Multi-Ingredient Lotion 1 applic 03/26/17 22:00 03/31/17 21:38 Eucerin (Small Jar) - TP Not Given HS LALIT Nicotine 14 mg 03/27/17 10:00 04/01/17 10:46 Nicoderm Patch - TD Not Given DAILY LALIT Nicotine Polacrilex 2 mg 03/26/17 14:16 04/01/17 09:03 Nicorette Gum - BUC 2 mg Q2H PRN Administration NICOTINE REPLACEMENT RX Multivit/Folic Acid/Iron 1 tab 03/27/17 10:00 04/01/17 10:45 Vitamins (Sjr) - PO 1 tab DAILY LALIT Administration Pseudoephedrine/Triprolidine 1 combo 03/26/17 14:16 Actifed - PO TID PRN NASAL CONGESTION Quetiapine Fumarate 150 mg 04/01/17 22:00 Seroquel - PO HS LALIT Ranitidine HCl 150 mg 03/26/17 22:00 04/01/17 10:45 Zantac - PO 150 mg BID LALIT Administration Thiamine HCl 100 mg 03/26/17 22:00 03/31/17 21:39 Vitamin B1 - PO 100 mg HS LALIT Administration Tolnaftate 1 applic 03/28/17 22:00 10/23/17 10:46 Tinactin 1% Cream - TP Not Given BID [facility] Medication(s) Change(s): Seroquel is raised to 150 mg po hs (from 100 mg/hs) .Side effects/benefits discussed with the patient.She agrees with this careplan. Current Side Effect: No Lab tests ordered: No Lab tests reviewed: Yes Provider note:: Met with patient.Medications revisited.Sleep hygiene principles are discussed.Patient admits to feeling much better except for her inability " to stay asleep " through the night.She agrees to a modest increase of seroquel dose.Adherent to treatment. Total face to face time:: 30 Mental Status Exam - Mental Status Exam Alert and Oriented to: Time, Place, Person Cognitive Function: Good Patient Appearance: Well Groomed Mood: Anxious, Hopeful Affect: Appropriate, Normal Range Patient Behavior: Cooperative Speech Pattern: Clear, Appropriate Voice Loudness: Normal Thought Process: Intact, Goal Oriented Thought Disorder: Not Present Hallucinations: Denies Suicidal Ideation: Denies Homicidal Ideation: Denies Insight/Judgement: Fair Sleep: Poorly, Difficulty falling asleep Appetite: Good Muscle strength/Tone: Normal Gait/Station: Normal Psychiatric Treatment Plan - Problem List (1) Alcohol dependence Current Visit: Yes (2) Cocaine dependence Current Visit: Yes (3) Eczema Current Visit: Yes Qualifiers: (4) GERD (gastroesophageal reflux disease) Current Visit: Yes Qualifiers: (5) Nicotine dependence Current Visit: Yes Qualifiers: (6) Substance induced mood disorder Current Visit: Yes (7) Insomnia Current Visit: Yes
[2017-04-01] MEDS: CYCLOBENZAPRINE HCL 10 MG TABLET (FP) PO SCH ×2 (14:38→21:58)
[2017-04-01] MEDS: THIAMINE HCL 100 MG TABLET (FP) PO SCH (21:58)
[2017-04-01] MEDS: MIRTAZAPINE 15 MG TABLET (FP) PO SCH (21:58)
[2017-04-01] MEDS ORDERED: QUEtiapine FUMARATE 25 MG TABLET (FP) ONE (22:00)
[2017-04-01] MEDS: DOCUSATE SODIUM 100 MG CAPSULE (FP) PO SCH (22:01)
[2017-04-01] MEDS: QUEtiapine FUMARATE 50 MG TABLET PO SCH (22:02)
[2017-04-01] MEDS: MINERAL OIL/PETROLAT/WATER TOPICAL CREAM 113 GM JAR TP SCH (22:02)
[2017-04-02] MEDS: hydrOXYzine PAMOATE 50 MG CAPSULE (FP) PO PRN ×3 (03:12→21:47)
[2017-04-02] MEDS ORDERED: PT OWN MED DRAWER 7, Y5N ONE (05:45)
[2017-04-02] MEDS: GABAPENTIN 400 MG CAPSULE (FP) PO SCH ×3 (06:32→21:46)
[2017-04-02] MEDS: CYCLOBENZAPRINE HCL 10 MG TABLET (FP) PO SCH ×3 (06:32→21:46)
[2017-04-02] MEDS: FLUOCINONIDE 0.05% CREAM (15 GM TUBE) TP SCH ×2 (10:30→21:48)
[2017-04-02] MEDS: FLUTICASONE PROP 0.05% 16 GM NASAL SPRAY NS SCH (10:30)
[2017-04-02] MEDS: LIDOCAINE 5% TOPICAL PATCH TP SCH (10:31)
[2017-04-02] MEDS: NICOTINE 14 MG/24 HOURS TOPICAL PATCH TD SCH (10:31)
[2017-04-02] MEDS: PRENATAL VITAMINS W/ FOLIC ACID TABLET (FP) PO SCH (10:31)
[2017-04-02] MEDS: TOLNAFTATE 1% CREAM 15 GM TUBE TP SCH ×2 (10:31→21:48)
[2017-04-02] MEDS: RANITIDINE HCL 150 MG TABLET (FP) PO SCH ×2 (10:31→21:45)
[2017-04-02] MEDS: THIAMINE HCL 100 MG TABLET (FP) PO SCH (21:45)
[2017-04-02] MEDS: MIRTAZAPINE 15 MG TABLET (FP) PO SCH (21:45)
[2017-04-02] MEDS: QUEtiapine FUMARATE 50 MG TABLET PO SCH (21:46)
[2017-04-02] MEDS: DOCUSATE SODIUM 100 MG CAPSULE (FP) PO SCH (21:46)
[2017-04-02] MEDS: MINERAL OIL/PETROLAT/WATER TOPICAL CREAM 113 GM JAR TP SCH (21:48)
[2017-04-02] MEDS: METHYL SALICYLATE/MENTHOL OINT 30 GM TUBE TP PRN (21:49)
[2017-04-02] MEDS: NICOTINE POLACRILEX 2 MG GUM BUC PRN (21:50)
[2017-04-03] MEDS: hydrOXYzine PAMOATE 50 MG CAPSULE (FP) PO PRN ×3 (03:34→21:37)
[2017-04-03] MEDS: guaiFENesin/D-METHORPHAN HB 10 ML UNIT-DOSE CUPS PO PRN (03:36)
[2017-04-03] MEDS: CYCLOBENZAPRINE HCL 10 MG TABLET (FP) PO SCH ×3 (06:36→21:37)
[2017-04-03] MEDS: GABAPENTIN 400 MG CAPSULE (FP) PO SCH ×3 (06:36→21:37)
[2017-04-03] MEDS ORDERED: PT OWN MED DRAWER 7, Y5N ONE (08:47)
[2017-04-03] MEDS: RANITIDINE HCL 150 MG TABLET (FP) PO SCH ×2 (10:33→21:37)
[2017-04-03] MEDS: PRENATAL VITAMINS W/ FOLIC ACID TABLET (FP) PO SCH (10:33)
[2017-04-03] MEDS: TOLNAFTATE 1% CREAM 15 GM TUBE TP SCH ×2 (10:34→21:39)
[2017-04-03] MEDS: NICOTINE 14 MG/24 HOURS TOPICAL PATCH TD SCH (10:35)
[2017-04-03] MEDS: FLUTICASONE PROP 0.05% 16 GM NASAL SPRAY NS SCH (10:35)
[2017-04-03] MEDS: FLUOCINONIDE 0.05% CREAM (15 GM TUBE) TP SCH ×2 (10:35→21:39)
[2017-04-03] MEDS: LIDOCAINE 5% TOPICAL PATCH TP SCH (10:36)
[2017-04-03] MEDS: MENTHOL/PHENOL 1 EACH UD MM PRN (10:38)
[2017-04-03] MEDS: NICOTINE POLACRILEX 2 MG GUM BUC PRN (10:39)
[2017-04-03] MEDS: DOCUSATE SODIUM 100 MG CAPSULE (FP) PO SCH (21:37)
[2017-04-03] MEDS: MIRTAZAPINE 15 MG TABLET (FP) PO SCH (21:37)
[2017-04-03] MEDS: QUEtiapine FUMARATE 50 MG TABLET PO SCH (21:37)
[2017-04-03] MEDS: THIAMINE HCL 100 MG TABLET (FP) PO SCH (21:37)
[2017-04-03] MEDS: MINERAL OIL/PETROLAT/WATER TOPICAL CREAM 113 GM JAR TP SCH (21:39)
[2017-04-04] MEDS: GABAPENTIN 400 MG CAPSULE (FP) PO SCH ×3 (06:36→21:46)
[2017-04-04] MEDS: CYCLOBENZAPRINE HCL 10 MG TABLET (FP) PO SCH ×3 (06:37→21:46)
[2017-04-04] MEDS: hydrOXYzine PAMOATE 50 MG CAPSULE (FP) PO PRN ×3 (06:37→21:46)
[2017-04-04] MEDS: LIDOCAINE 5% TOPICAL PATCH TP SCH (10:32)
[2017-04-04] MEDS: NICOTINE 14 MG/24 HOURS TOPICAL PATCH TD SCH (10:32)
[2017-04-04] MEDS: FLUTICASONE PROP 0.05% 16 GM NASAL SPRAY NS SCH (10:32)
[2017-04-04] MEDS: RANITIDINE HCL 150 MG TABLET (FP) PO SCH ×2 (10:32→21:46)
[2017-04-04] MEDS: TOLNAFTATE 1% CREAM 15 GM TUBE TP SCH ×2 (10:32→21:47)
[2017-04-04] MEDS: FLUOCINONIDE 0.05% CREAM (15 GM TUBE) TP SCH ×2 (10:32→21:48)
[2017-04-04] MEDS: PRENATAL VITAMINS W/ FOLIC ACID TABLET (FP) PO SCH (10:32)
[2017-04-04] MEDS: IBUPROFEN 400 MG TABLET (FP) PO PRN (10:35)
[2017-04-04] MEDS: guaiFENesin/D-METHORPHAN HB 10 ML UNIT-DOSE CUPS PO PRN (10:36)
[2017-04-04] MEDS: MENTHOL/PHENOL 1 EACH UD MM PRN (10:36)
[2017-04-04] MEDS: THIAMINE HCL 100 MG TABLET (FP) PO SCH (21:46)
[2017-04-04] MEDS: QUEtiapine FUMARATE 50 MG TABLET PO SCH (21:46)
[2017-04-04] MEDS: MIRTAZAPINE 15 MG TABLET (FP) PO SCH (21:46)
[2017-04-04] MEDS: DOCUSATE SODIUM 100 MG CAPSULE (FP) PO SCH (21:46)
[2017-04-04] MEDS: MINERAL OIL/PETROLAT/WATER TOPICAL CREAM 113 GM JAR TP SCH (21:48)
[2017-04-04] MEDS ORDERED: PT OWN MED DRAWER 7, Y5N ONE (22:04)
[2017-04-05] MEDS: IBUPROFEN 400 MG TABLET (FP) PO PRN (03:58)
[2017-04-05] MEDS: hydrOXYzine PAMOATE 50 MG CAPSULE (FP) PO PRN ×3 (03:58→22:51)
[2017-04-05] MEDS: GABAPENTIN 400 MG CAPSULE (FP) PO SCH ×3 (06:32→21:38)
[2017-04-05] MEDS: CYCLOBENZAPRINE HCL 10 MG TABLET (FP) PO SCH ×3 (06:32→21:39)
[2017-04-05] MEDS ORDERED: PT OWN MED DRAWER 7, Y5N ONE (08:58)
[2017-04-05] MEDS: FLUTICASONE PROP 0.05% 16 GM NASAL SPRAY NS SCH (10:42)
[2017-04-05] MEDS: FLUOCINONIDE 0.05% CREAM (15 GM TUBE) TP SCH ×2 (10:43→21:41)
[2017-04-05] MEDS: LIDOCAINE 5% TOPICAL PATCH TP SCH (10:43)
[2017-04-05] MEDS: PRENATAL VITAMINS W/ FOLIC ACID TABLET (FP) PO SCH (10:44)
[2017-04-05] MEDS: TOLNAFTATE 1% CREAM 15 GM TUBE TP SCH ×2 (10:44→21:40)
[2017-04-05] MEDS: NICOTINE 14 MG/24 HOURS TOPICAL PATCH TD SCH (10:44)
[2017-04-05] MEDS: RANITIDINE HCL 150 MG TABLET (FP) PO SCH ×2 (10:44→21:39)
--- NOTE | 2017-04-05 12:18 | PN ---
Psychiatric Progress Note Vital Signs: Vital Signs Period Temp Pulse Resp BP Sys/Darby Pulse Ox Last 24 Hr 98.3 F 80 18-18 108/75 Date of Session: 04/05/17 Chief Complaint:: Sleep is still a problem,still craving for alcohol." HPI: Alcohol,Cocaine dependence comorbid with Bipolar disorder. Current Medications: Active Medications Generic Name Dose Route Start Last Admin Trade Name Freq PRN Reason Stop Dose Admin Acetaminophen 650 mg 03/26/17 14:16 03/26/17 21:52 Tylenol - PO 650 mg Q4H PRN Administration FEVER OR PAIN Al Hydroxide/Mg Hydroxide 30 ml 03/26/17 14:16 03/31/17 14:25 Mylanta Oral Suspension - PO 30 ml Q6H PRN Administration DYSPEPSIA Albuterol Sulfate 2 puff 03/26/17 14:18 03/29/17 21:51 Ventolin Hfa Inhaler - IH 2 inhaler Q4H PRN Administration WHEEZING Albuterol/Ipratropium 1 amp 03/26/17 14:18 03/26/17 16:05 Duoneb - NEB 1 amp Q4H PRN Administration WHEEZING Cyclobenzaprine HCl 10 mg 04/01/17 14:00 04/05/17 06:32 Flexeril - PO 10 mg TID LALIT Administration Docusate Sodium 300 mg 04/01/17 22:00 04/04/17 21:46 Colace - PO 300 mg HS LALIT Administration Eucalyptus/Menthol/Phenol/Sorbitol 1 each 03/26/17 14:16 04/04/17 10:36 Cepastat Lozenge - MM 1 each Q4H PRN Administration SORE THROAT Fluocinonide 1 applic 03/26/17 22:00 04/05/17 10:43 Lidex 0.05% Cream - TP 1 applic BID LALIT Administration Fluticasone Propionate 2 spray 03/28/17 14:00 04/05/17 10:42 Flonase - NS 2 spray DAILY LALIT Administration Gabapentin 800 mg 04/01/17 14:00 04/05/17 06:32 Neurontin - PO 800 mg TID LALIT Administration Guaifenesin 10 ml 03/26/17 14:16 04/04/17 10:36 Robitussin Dm - PO 10 ml Q6H PRN Administration COUGH Hydroxyzine Pamoate 50 mg 03/26/17 14:16 04/05/17 10:46 Vistaril - PO 50 mg Q4H PRN Administration AGITATION Ibuprofen 800 mg 03/26/17 14:18 04/05/17 03:58 Motrin - PO 800 mg Q8H PRN Administration PAIN Lidocaine 1 patch 03/27/17 10:00 04/05/17 10:43 Lidoderm Patch - TP 1 patch DAILY LALIT Administration Loperamide HCl 4 mg 03/26/17 14:16 Imodium - PO Q6H PRN DIARRHEA Magnesium Hydroxide 30 ml 03/26/17 14:16 03/28/17 13:54 Milk Of Magnesia - PO 30 ml DAILY PRN Administration CONSTIPATION Methyl Salicylate 1 applic 03/27/17 07:28 04/02/17 21:49 Allan-Tellez - TP 1 applic BID PRN Administration PAIN Mirtazapine 15 mg 03/26/17 22:00 04/04/17 21:46 Remeron - PO 15 mg HS LALIT Administration Multi-Ingredient Lotion 1 applic 03/26/17 22:00 04/04/17 21:48 Eucerin (Small Jar) - TP 1 applic HS LALIT Administration Naltrexone HCl 50 mg 04/05/17 12:15 Revia - PO DAILY LALIT Nicotine 14 mg 03/27/17 10:00 04/05/17 10:44 Nicoderm Patch - TD Not Given DAILY LALIT Nicotine Polacrilex 2 mg 03/26/17 14:16 04/03/17 10:39 Nicorette Gum - BUC 2 mg Q2H PRN Administration NICOTINE REPLACEMENT RX Multivit/Folic Acid/Iron 1 tab 03/27/17 10:00 04/05/17 10:44 Vitamins (Sjr) - PO 1 tab DAILY LALIT Administration Pseudoephedrine/Triprolidine 1 combo 03/26/17 14:16 Actifed - PO TID PRN NASAL CONGESTION Quetiapine Fumarate 200 mg 04/05/17 22:00 Seroquel - PO HS LALIT Ranitidine HCl 150 mg 03/26/17 22:00 04/05/17 10:44 Zantac - PO 150 mg BID LALIT Administration Thiamine HCl 100 mg 03/26/17 22:00 04/04/17 21:46 Vitamin B1 - PO 100 mg HS LALIT Administration Tolnaftate 1 applic 03/28/17 22:00 04/05/17 10:44 Tinactin 1% Cream - TP 1 applic BID LALIT Administration Current Side Effect: No Lab tests ordered: No Lab tests reviewed: Yes Provider note:: Chart was revuewed,physician attending notes appreciated,met with patient .She addressed ongoing sleeping difficulties,still craving for alcohol.Properties of Naltrexone has been discussed with the patient,including side effects,benefits and dose adjustment.Naltrexone 50 mg po daily will be started today.Seroquel 150 mg po hs will be adjusted to 200 mg po hs. Supportive therapy provided. Total face to face time:: 30 Mental Status Exam - Mental Status Exam Alert and Oriented to: Time, Place, Person Cognitive Function: Grossly Intact Patient Appearance: Well Groomed Mood: Anxious Affect: Labile Patient Behavior: Cooperative Speech Pattern: Clear Voice Loudness: Normal Thought Process: Goal Oriented Thought Disorder: Not Present Hallucinations: Denies Suicidal Ideation: Denies Homicidal Ideation: Denies Insight/Judgement: Fair Sleep: Difficulty falling asleep Appetite: Fair Muscle strength/Tone: Normal Gait/Station: Normal Psychiatric Treatment Plan - Problem List (1) Cocaine dependence Current Visit: Yes (2) Nicotine dependence Current Visit: Yes Qualifiers: (3) Substance induced mood disorder Current Visit: Yes (4) Eczema Current Visit: Yes Qualifiers: (5) GERD (gastroesophageal reflux disease) Current Visit: Yes Qualifiers: (6) Alcohol dependence Current Visit: Yes
[2017-04-05] MEDS: NALTREXONE HCL 50 MG TABLET PO SCH (13:22)
[2017-04-05] MEDS: QUEtiapine FUMARATE 200 MG TABLET PO SCH (21:38)
[2017-04-05] MEDS: THIAMINE HCL 100 MG TABLET (FP) PO SCH (21:38)
[2017-04-05] MEDS: MIRTAZAPINE 15 MG TABLET (FP) PO SCH (21:39)
[2017-04-05] MEDS: DOCUSATE SODIUM 100 MG CAPSULE (FP) PO SCH (21:39)
[2017-04-05] MEDS: MINERAL OIL/PETROLAT/WATER TOPICAL CREAM 113 GM JAR TP SCH (21:41)
[2017-04-05] MEDS: MENTHOL/PHENOL 1 EACH UD MM PRN (21:43)
[2017-04-05] MEDS: guaiFENesin/D-METHORPHAN HB 10 ML UNIT-DOSE CUPS PO PRN (21:43)
[2017-04-06] MEDS: CYCLOBENZAPRINE HCL 10 MG TABLET (FP) PO SCH ×3 (07:00→21:46)
[2017-04-06] MEDS: GABAPENTIN 400 MG CAPSULE (FP) PO SCH ×3 (07:00→21:45)
[2017-04-06] MEDS ORDERED: PT OWN MED DRAWER 7, Y5N ONE (08:51)
[2017-04-06] MEDS: PRENATAL VITAMINS W/ FOLIC ACID TABLET (FP) PO SCH (10:38)
[2017-04-06] MEDS: RANITIDINE HCL 150 MG TABLET (FP) PO SCH ×2 (10:38→21:45)
[2017-04-06] MEDS: hydrOXYzine PAMOATE 50 MG CAPSULE (FP) PO PRN ×2 (10:39→21:46)
[2017-04-06] MEDS: TOLNAFTATE 1% CREAM 15 GM TUBE TP SCH ×2 (10:40→21:49)
[2017-04-06] MEDS: NALTREXONE HCL 50 MG TABLET PO SCH (10:40)
[2017-04-06] MEDS: IBUPROFEN 400 MG TABLET (FP) PO PRN (10:41)
[2017-04-06] MEDS: FLUOCINONIDE 0.05% CREAM (15 GM TUBE) TP SCH ×2 (10:42→21:48)
[2017-04-06] MEDS: NICOTINE 14 MG/24 HOURS TOPICAL PATCH TD SCH (10:42)
[2017-04-06] MEDS: LIDOCAINE 5% TOPICAL PATCH TP SCH (10:42)
[2017-04-06] MEDS: FLUTICASONE PROP 0.05% 16 GM NASAL SPRAY NS SCH (10:42)
[2017-04-06] MEDS: DOCUSATE SODIUM 100 MG CAPSULE (FP) PO SCH (21:45)
[2017-04-06] MEDS: THIAMINE HCL 100 MG TABLET (FP) PO SCH (21:45)
[2017-04-06] MEDS: MIRTAZAPINE 15 MG TABLET (FP) PO SCH (21:45)
[2017-04-06] MEDS: QUEtiapine FUMARATE 200 MG TABLET PO SCH (21:46)
[2017-04-06] MEDS: MINERAL OIL/PETROLAT/WATER TOPICAL CREAM 113 GM JAR TP SCH (21:48)
[2017-04-06] MEDS: NICOTINE POLACRILEX 2 MG GUM BUC PRN (21:48)
[2017-04-07] MEDS: hydrOXYzine PAMOATE 50 MG CAPSULE (FP) PO PRN ×3 (07:11→21:45)
[2017-04-07] MEDS: GABAPENTIN 400 MG CAPSULE (FP) PO SCH ×3 (07:11→21:45)
[2017-04-07] MEDS: guaiFENesin/D-METHORPHAN HB 10 ML UNIT-DOSE CUPS PO PRN (07:11)
[2017-04-07] MEDS: CYCLOBENZAPRINE HCL 10 MG TABLET (FP) PO SCH ×3 (07:11→21:45)
[2017-04-07] MEDS ORDERED: PT OWN MED DRAWER 7, Y5N ONE (08:47)
[2017-04-07] MEDS: FLUOCINONIDE 0.05% CREAM (15 GM TUBE) TP SCH ×2 (10:12→21:47)
[2017-04-07] MEDS: FLUTICASONE PROP 0.05% 16 GM NASAL SPRAY NS SCH (10:12)
[2017-04-07] MEDS: RANITIDINE HCL 150 MG TABLET (FP) PO SCH ×2 (10:12→21:45)
[2017-04-07] MEDS: NALTREXONE HCL 50 MG TABLET PO SCH (10:12)
[2017-04-07] MEDS: LIDOCAINE 5% TOPICAL PATCH TP SCH (10:12)
[2017-04-07] MEDS: PRENATAL VITAMINS W/ FOLIC ACID TABLET (FP) PO SCH (10:12)
[2017-04-07] MEDS: NICOTINE 14 MG/24 HOURS TOPICAL PATCH TD SCH (10:13)
[2017-04-07] MEDS: TOLNAFTATE 1% CREAM 15 GM TUBE TP SCH ×2 (10:13→21:47)
[2017-04-07] MEDS: IBUPROFEN 400 MG TABLET (FP) PO PRN (10:14)
[2017-04-07] MEDS: MIRTAZAPINE 15 MG TABLET (FP) PO SCH (21:45)
[2017-04-07] MEDS: DOCUSATE SODIUM 100 MG CAPSULE (FP) PO SCH (21:45)
[2017-04-07] MEDS: QUEtiapine FUMARATE 200 MG TABLET PO SCH (21:45)
[2017-04-07] MEDS: MINERAL OIL/PETROLAT/WATER TOPICAL CREAM 113 GM JAR TP SCH (21:46)
[2017-04-07] MEDS: THIAMINE HCL 100 MG TABLET (FP) PO SCH (21:47)
[2017-04-08] MEDS: hydrOXYzine PAMOATE 50 MG CAPSULE (FP) PO PRN ×2 (06:33→21:38)
[2017-04-08] MEDS: GABAPENTIN 400 MG CAPSULE (FP) PO SCH ×3 (06:33→21:36)
[2017-04-08] MEDS: CYCLOBENZAPRINE HCL 10 MG TABLET (FP) PO SCH ×3 (06:33→21:36)
[2017-04-08] MEDS ORDERED: PT OWN MED DRAWER 7, Y5N ONE (08:52)
[2017-04-08] MEDS: FLUTICASONE PROP 0.05% 16 GM NASAL SPRAY NS SCH (10:22)
[2017-04-08] MEDS: FLUOCINONIDE 0.05% CREAM (15 GM TUBE) TP SCH ×2 (10:23→21:38)
[2017-04-08] MEDS: PRENATAL VITAMINS W/ FOLIC ACID TABLET (FP) PO SCH (10:23)
[2017-04-08] MEDS: NALTREXONE HCL 50 MG TABLET PO SCH (10:23)
[2017-04-08] MEDS: LIDOCAINE 5% TOPICAL PATCH TP SCH (10:23)
[2017-04-08] MEDS: NICOTINE 14 MG/24 HOURS TOPICAL PATCH TD SCH (10:23)
[2017-04-08] MEDS: TOLNAFTATE 1% CREAM 15 GM TUBE TP SCH ×2 (10:24→21:38)
[2017-04-08] MEDS: RANITIDINE HCL 150 MG TABLET (FP) PO SCH ×2 (10:24→21:36)
[2017-04-08] MEDS: MENTHOL/PHENOL 1 EACH UD MM PRN (10:25)
[2017-04-08] MEDS: guaiFENesin/D-METHORPHAN HB 10 ML UNIT-DOSE CUPS PO PRN (10:26)
[2017-04-08] MEDS: NICOTINE POLACRILEX 2 MG GUM BUC PRN (10:26)
[2017-04-08] MEDS ORDERED: COLLOIDAL OATMEAL 1 BAR EACH TP PRN (12:39)
--- NOTE | 2017-04-08 17:24 | PN ---
Psychiatric Progress Note Vital Signs: Vital Signs Period Temp Pulse Resp BP Sys/Darby Pulse Ox Last 24 Hr 98.0 F 98 17-18 111/76 Date of Session: 04/08/17 Chief Complaint:: Discharge visit HPI: Patient addressed Alcohol and Cocaine dependence comorbid with sUBSTANCE INDUCED MOOD DIOSRDER. ROS: Significant for GERD,BA,Eczema Current Medications: Active Medications Generic Name Dose Route Start Last Admin Trade Name Freq PRN Reason Stop Dose Admin Acetaminophen 650 mg 03/26/17 14:16 03/26/17 21:52 Tylenol - PO 650 mg Q4H PRN Administration FEVER OR PAIN Al Hydroxide/Mg Hydroxide 30 ml 03/26/17 14:16 03/31/17 14:25 Mylanta Oral Suspension - PO 30 ml Q6H PRN Administration DYSPEPSIA Albuterol Sulfate 2 puff 03/26/17 14:18 03/29/17 21:51 Ventolin Hfa Inhaler - IH 2 inhaler Q4H PRN Administration WHEEZING Albuterol/Ipratropium 1 amp 03/26/17 14:18 03/26/17 16:05 Duoneb - NEB 1 amp Q4H PRN Administration WHEEZING Colloidal Oatmeal 1 applic 04/08/17 12:39 04/08/17 15:50 Aveeno Soap - TP 1 bar DAILY PRN Administration HYGEINE Cyclobenzaprine HCl 10 mg 04/01/17 14:00 04/08/17 13:10 Flexeril - PO 10 mg TID LALIT Administration Docusate Sodium 300 mg 04/01/17 22:00 04/07/17 21:45 Colace - PO 300 mg HS LALIT Administration Eucalyptus/Menthol/Phenol/Sorbitol 1 each 03/26/17 14:16 04/08/17 10:25 Cepastat Lozenge - MM 1 each Q4H PRN Administration SORE THROAT Fluocinonide 1 applic 03/26/17 22:00 04/08/17 10:23 Lidex 0.05% Cream - TP Not Given BID LALIT Fluticasone Propionate 2 spray 03/28/17 14:00 04/08/17 10:22 Flonase - NS 2 spray DAILY LALIT Administration Gabapentin 800 mg 04/01/17 14:00 04/08/17 13:10 Neurontin - PO 800 mg TID LALIT Administration Guaifenesin 10 ml 03/26/17 14:16 04/08/17 10:26 Robitussin Dm - PO 10 ml Q6H PRN Administration COUGH Hydroxyzine Pamoate 50 mg 03/26/17 14:16 04/08/17 06:33 Vistaril - PO 50 mg Q4H PRN Administration AGITATION Ibuprofen 800 mg 03/26/17 14:18 04/07/17 10:14 Motrin - PO 800 mg Q8H PRN Administration PAIN Lidocaine 1 patch 03/27/17 10:00 04/08/17 10:23 Lidoderm Patch - TP 1 patch DAILY LALIT Administration Loperamide HCl 4 mg 03/26/17 14:16 Imodium - PO Q6H PRN DIARRHEA Magnesium Hydroxide 30 ml 03/26/17 14:16 03/28/17 13:54 Milk Of Magnesia - PO 30 ml DAILY PRN Administration CONSTIPATION Methyl Salicylate 1 applic 03/27/17 07:28 04/02/17 21:49 Allan-Tellez - TP 1 applic BID PRN Administration PAIN Mirtazapine 15 mg 03/26/17 22:00 04/07/17 21:45 Remeron - PO 15 mg HS LALIT Administration Multi-Ingredient Lotion 1 applic 03/26/17 22:00 04/07/17 21:46 Eucerin (Small Jar) - TP 1 applic HS LALIT Administration Naltrexone HCl 50 mg 04/05/17 12:40 04/08/17 10:23 Revia - PO 50 mg DAILY LALIT Administration Nicotine 14 mg 03/27/17 10:00 04/08/17 10:23 Nicoderm Patch - TD Not Given DAILY LALIT Nicotine Polacrilex 2 mg 03/26/17 14:16 04/08/17 10:26 Nicorette Gum - BUC 2 mg Q2H PRN Administration NICOTINE REPLACEMENT RX Multivit/Folic Acid/Iron 1 tab 03/27/17 10:00 04/08/17 10:23 Vitamins (Sjr) - PO 1 tab DAILY LALIT Administration Pseudoephedrine/Triprolidine 1 combo 03/26/17 14:16 Actifed - PO TID PRN NASAL CONGESTION Quetiapine Fumarate 200 mg 04/05/17 22:00 04/07/17 21:45 Seroquel - PO 200 mg HS LALIT Administration Ranitidine HCl 150 mg 03/26/17 22:00 04/08/17 10:24 Zantac - PO 150 mg BID LALIT Administration Thiamine HCl 100 mg 03/26/17 22:00 04/07/17 21:47 Vitamin B1 - PO 100 mg HS LALIT Administration Tolnaftate 1 applic 03/28/17 22:00 04/08/17 10:24 Tinactin 1% Cream - TP Not Given BID LALIT Current Side Effect: No Lab tests ordered: No Lab tests reviewed: Yes Provider note:: Patient will complete this program tomorrow 04/09/17.She has met her treatment goals and will continue to address her issuews on outpatient basis.Patient reports finding that current medications including Neurontin 800 mg po tid,Remeron 15 mg po hs adn Seroquel 200 mg po hs help to cope with mood instability,insomnia,anxiety.Scripts for 30 days supply provided. Patient identifies areas of difficulties,ways,behavors she can utilize to maintain recovery. Patient is STABLE FOR DISCHARGE TOMORROW 04/09/17. Total face to face time:: 30 Mental Status Exam - Mental Status Exam Alert and Oriented to: Time, Place, Person Cognitive Function: Grossly Intact Patient Appearance: Well Groomed Mood: Anxious, Hopeful Affect: Mood Congruent Patient Behavior: Cooperative Speech Pattern: Clear Voice Loudness: Normal Thought Process: Goal Oriented Thought Disorder: Not Present Hallucinations: Denies Suicidal Ideation: Denies Homicidal Ideation: Denies Insight/Judgement: Fair Sleep: Fair Appetite: Good Muscle strength/Tone: Normal Gait/Station: Normal Psychiatric Treatment Plan - Problem List (2) Nicotine dependence Qualifiers: (4) Eczema Qualifiers: (5) GERD (gastroesophageal reflux disease) Qualifiers:
[2017-04-08] MEDS: THIAMINE HCL 100 MG TABLET (FP) PO SCH (21:36)
[2017-04-08] MEDS: DOCUSATE SODIUM 100 MG CAPSULE (FP) PO SCH (21:36)
[2017-04-08] MEDS: QUEtiapine FUMARATE 200 MG TABLET PO SCH (21:36)
[2017-04-08] MEDS: MIRTAZAPINE 15 MG TABLET (FP) PO SCH (21:36)
[2017-04-08] MEDS: MINERAL OIL/PETROLAT/WATER TOPICAL CREAM 113 GM JAR TP SCH (21:38)
[2017-04-09] MEDS: CYCLOBENZAPRINE HCL 10 MG TABLET (FP) PO SCH (06:18)
[2017-04-09] MEDS: GABAPENTIN 400 MG CAPSULE (FP) PO SCH (06:18)
[2017-04-09] MEDS: hydrOXYzine PAMOATE 50 MG CAPSULE (FP) PO PRN ×2 (06:19→10:10)
[2017-04-09 07:04] VITALS: BP 109/81; PULSE 83; TEMP 97.7
[2017-04-09] MEDS ORDERED: PT OWN MED DRAWER 7, Y5N ONE ×4 (08:57→10:06)
[2017-04-09] MEDS: NALTREXONE HCL 50 MG TABLET PO SCH (10:09)
[2017-04-09] MEDS: RANITIDINE HCL 150 MG TABLET (FP) PO SCH (10:09)
[2017-04-09] MEDS: PRENATAL VITAMINS W/ FOLIC ACID TABLET (FP) PO SCH (10:09)
[2017-04-09] MEDS: FLUTICASONE PROP 0.05% 16 GM NASAL SPRAY NS SCH (10:11)
[2017-04-09] MEDS: FLUOCINONIDE 0.05% CREAM (15 GM TUBE) TP SCH (10:11)
[2017-04-09] MEDS: LIDOCAINE 5% TOPICAL PATCH TP SCH (10:11)
[2017-04-09] MEDS: NICOTINE 14 MG/24 HOURS TOPICAL PATCH TD SCH (10:11)
[2017-04-09] MEDS: TOLNAFTATE 1% CREAM 15 GM TUBE TP SCH (10:11)
== END 2017-04-09 10:10 | disposition home or self-care (01) | DRG 772 ==
LOC: YASAS 12:48 → Y3E 12:52
PROVIDERS: ADMIT Psychiatry & Neurology Psychiatry; ATTEND Psychiatry & Neurology Psychiatry
PROC: HZ42ZZZ Group Counseling for Substance Abuse Treatment, Cognitive-Behavioral (ICD-10-PCS; principal; 2017-03-26)
DX: F10.230 Alcohol dependence with withdrawal, uncomplicated (principal); F14.20 Cocaine dependence, uncomplicated; F17.210 Nicotine dependence, cigarettes, uncomplicated; F19.24 Other psychoactive substance dependence with psychoactive substance-induced mood disorder; K21.9 Gastro-esophageal reflux disease without esophagitis; L30.9 Dermatitis, unspecified
CPT/HCPCS: 36415; 87389; 90732; 94640; G0009; J0475